=== PATIENT | female | born 1995 | race African-American/Black ===

== ENCOUNTER 2016-07-17 13:49 | Emergency (ER) | payer OTHER ==
[~2016-07-17 13:49] MED LIST: NO HOME MEDS; ORTHO TRICYCLEN LO PO; flagyl PO; ibuprofen PO; lortab PO; no meds; tylenol PO
[2016-07-17 15:57] LABS: MEAN CORPUSCULAR HEMOGLOBIN 25.5 pg (27.0-33.0); MEAN CORPUSCULAR HGB CONC 31.6 g/dl (32.0-36.5); MEAN CORPUSCULAR VOLUME 80.8 fl (80.0-96.0); PLATELET COUNT, AUTOMATED 287 k/mm3 (150-450); RED CELL DISTRIBUTION WIDTH 15.4 % (11.5-14.5); WHITE BLOOD COUNT 8.5 K/mm3 (4.0-10.0)
[2016-07-17 16:14] LABS: ANION GAP 9 MEQ/L (8-16); BLOOD UREA NITROGEN 4 MG/DL (7-18); CARBON DIOXIDE LEVEL 24 MEQ/L (21-32); CHLORIDE LEVEL 111 MEQ/L (98-107); CREATININE FOR GFR 0.67 MG/DL (0.55-1.02); GLUCOSE, FASTING 98 MG/DL (70-105); HCG, SERUM QUANTITATIVE 455 MIU/ML; POTASSIUM SERUM 3.7 MEQ/L (3.5-5.1); SODIUM LEVEL 144 MEQ/L (136-145)
[2016-07-17 16:27] LABS: ANISOCYTOSIS 1+; EOSINOPHILS 3 % (0-5); HYPOCHROMASIA 1+
--- NOTE | 2016-07-17 16:47 | REP ---
Obstetric sonography: First trimester study. History: 7 weeks gestation by dates, vaginal bleeding. Findings: Transabdominal and transvaginal scanning are performed. Uterus is empty. Its dimensions are normal at 7.7 x 3.5 x 4.8 cm. Endometrial echo is 1.1 cm thick. No intra-uterine gestation is seen. A normal right ovary is seen with dimensions of 3.0 x 1.6 x 1.1 cm. Left ovary measures 3.4 x 2.2 x 1.7 cm. There is a 2.2 x 1.3 x 1.9 cm hypoechoic cyst in the left ovary consistent with corpus luteum. There is minimal cul-de-sac fluid. Impression: Nonspecific sonographic findings: Normal sized empty uterus. No intrauterine gestation seen. No adnexal mass or significant cul-de-sac fluid is seen. Clinical and possibly sonographic followup is advised. Signed by Timur Green MD 07/17/2016 04:49 P
--- NOTE | 2016-07-17 17:32 | EDDOCDS ---
Nurse's Notes [facility] Name: Hanna Wilkerson Age: 20 yrs Sex: Female : 1995 Arrival Date: 07/17/2016 Time: 13:49 Bed I7 / 29 Private MD: LAURA Minor Diagnosis: Threatened ;Acute vaginitis-bacterial vaginosis Presentation: 07/17 13:58 Presenting complaint: Patient states: Pt presents with c/o abdominal pain cramping and dls bleeding onset 12 midnight. Pt has had a positive home test no OB care yet. LMP May. Risk factors: The patient reports no loss of conciousness prior to arrival. This patient has not had a hysterectomy. This patient has not begun menopause. Adult Sepsis Screening: The patient does not have new or worsening altered mentation. Patient's respiratory rate is less than 22. Systolic blood pressure is greater than 100. Patient has a qSOFA score of 0- Negative Sepsis Screen. Suicide/Homicide risk assessment- the patient denies having any suicidal and/or homicidal ideations and does not present with any other emotional, behavioral or mental health complaints. Status: The patient is a dependent. Transition of care: patient was not received from another setting of care. 13:58 Acuity: HARITHA Level 3 dls 13:58 Method Of Arrival: Walkin/Carried/Asstd dls Triage Assessment: 14:00 General: Appears in no apparent distress, well developed, well nourished, well groomed, dls Behavior is cooperative. Pain: Pain currently is 3 out of 10 on a pain scale. HIV screening NA for this visit Offered previously. 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 none - PMHx: none; - PSHx: none; - Social history: Smoking status: Patient/guardian denies using No barriers to communication noted, The patient speaks fluent Italian. - Family history: Not pertinent. - : The pt / caregiver states he / she is not on anticoagulants. Home medication list is obtained from the patient. - Exposure Risk Screening:: None identified. Screenin:33 Screening information is obtained from the patient. Fall risk: No risks identified. [place] Assistance ADL's: requires no assistance with activities of daily living. Abuse/DV Screen: The patient / caregiver reports he/she is: not in a situation that causes fear, pain or injury. Nutritional screening: No deficits noted. Advance Directives: Currently, there is no health care proxy. There is no active DNR order. There is no living will. There is no Power of Environmental Educator. home support is adequate. Assessment: 15:33 General: Appears in no apparent distress, skin warm and dry color satisfactory. Moist jmk pink oral mucosa .indicates lower abd cramping. Abd is non distended with bowel sounds present x 4. GI: Abdomen is flat, non- distended Bowel sounds present X 4 quads. Abd is soft X 4 quads Abd is tender to palpation in suprapubic area, right lower quadrant and left lower quadrant. 16:33 General: Appears resting with eyes closed resp easy and regular.. jmk 17:30 General: Appears receptive to discharge. brisk gait.. [facility] Vital Signs: 13:51 BP 134 / 79; Pulse 89; Resp 18 S; Temp 98.0(O); Pulse Ox 100% on R/A; Weight 54.88 kg gr2 (M); Height 4 ft. 9 in. (144.78 cm) (R); Pain 4/10; 17:22 BP 137 / 70; Pulse 70; Resp 18; Temp 97.7; Pulse Ox 99% ; Pain 0/10; jam1 13:51 Body Mass Index 26.18 (54.88 kg, 144.78 cm) gr2 Vitals: 13:51 Log In Time: July 17, 2016 at 13:51. gr2 ED Course: 13:51 Patient visited by Pari Cooper. gr2 13:51 [facility] is Private Physician. gr2 13:51 Patient moved to Waiting gr2 13:54 Patient visited by Pari Cooper. gr2 13:54 Patient moved to Pre RCE gr2 14:00 Triage Initiated dls 14:35 Patient moved to Triage 3 ar3 15:14 Luis Fernando Burnett PA is PHCP. mo1 15:14 Brandan Vuong MD is Attending Physician. mo1 15:20 Patient visited by Luis Fernando Burnett PA. mo1 15:26 Patient moved to I7 / ar3 15:33 The patient / caregiver is instructed regarding the plan of care and ED course. jmk 15:37 Patient visited by Juan Goldberg RN. jmk 15:46 Patient moved to Ultrasound br3 15:47 Urine Culture Sent. jmk 15:47 Type & Screen Sent. jmk 15:47 Hcg, Serum Quantitative Sent. jmk 15:47 BMP Sent. jmk 15:47 CBC with Diff Sent. jmk 15:50 Patient moved to I7 / br3 15:59 Patient moved to Ultrasound br3 16:32 Patient moved to I7 / 29 jmk 16:38 DIFFERENTIAL NO CHARGE Sent. kr3 17:02 US 1st trimester Returned. EDMS 17:02 TRANSVAGINAL US Returned. EDMS 17:02 DUPLEX SCAN LIMITED (DOPPLER) Returned. EDMS 17:21 Eladio Dumas MD is Referral Physician. mo1 Order Results: Lab Order: Wet Prep; SPEC'M 07/17/16 16:02 Test: WET PREP; Value: WET PREP RESULT; Status: F Test: WET PREP; Value: MANY EPITHELIAL CELLS PRESENT; Status: F Test: WET PREP; Value: CLUE CELLS PRESENT; Status: F Test: WET PREP; Value: FEW WBC; Status: F Test: WET PREP; Value: MANY RBC; Status: F Test: WET PREP; Value: MANY SHORT RODS PRESENT; Status: F Lab Order: CBC with Diff; SPEC'M 07/17/16 15:44 Test: WHITE BLOOD COUNT; Value: 8.5; Range: 4.0-10.0; Units: K/mm3; Status: F Test: RED BLOOD COUNT; Value: 4.62; Range: 4.00-5.40; Units: M/mm3; Status: F Test: HEMOGLOBIN; Value: 11.8; Range: 12.0-16.0; Abnormal: Below low normal; Units: g/dl; Status: F Test: HEMATOCRIT; Value: 37.3; Range: 36.0-47.0; Units: %; Status: F Test: MEAN CORPUSCULAR VOLUME; Value: 80.8; Range: 80.0-96.0; Units: fl; Status: F Test: MEAN CORPUSCULAR HEMOGLOBIN; Value: 25.5; Range: 27.0-33.0; Abnormal: Below low normal; Units: pg; Status: F Test: MEAN CORPUSCULAR HGB CONC; Value: 31.6; Range: 32.0-36.5; Abnormal: Below low normal; Units: g/dl; Status: F Test: RED CELL DISTRIBUTION WIDTH; Value: 15.4; Range: 11.5-14.5; Abnormal: Above high normal; Units: %; Status: F Test: PLATELET COUNT, AUTOMATED; Value: 287; Range: 150-450; Units: k/mm3; Status: F Test: NEUTROPHILS; Value: 54; Range: 35-75; Units: %; Status: F Test: LYMPHOCYTES; Value: 31; Range: 16-52; Units: %; Status: F Test: MONOCYTES; Value: 8; Range: 0-8; Units: %; Status: F Test: EOSINOPHILS; Value: 3; Range: 0-5; Units: %; Status: F Test: ATYPICAL LYMPH; Value: 4; Range: 0-5; Units: %; Status: F Test: HYPOCHROMASIA; Value: 1+; Status: F Test: ANISOCYTOSIS; Value: 1+; Status: F Lab Order: [facility]; SPEC'M 07/17/16 15:44 Test: GLUCOSE, FASTING; Value: 98; Range: 70-105; Units: MG/DL; Status: F Test: BLOOD UREA NITROGEN; Value: 4; Range: 7-18; Abnormal: Below low normal; Units: MG/DL; Status: F Test: CREATININE FOR GFR; Value: 0.67; Range: 0.55-1.02; Units: MG/DL; Status: F Test: SODIUM LEVEL; Value: 144; Range: 136-145; Units: MEQ/L; Status: F Test: POTASSIUM SERUM; Value: 3.7; Range: 3.5-5.1; Units: MEQ/L; Status: F Test: CHLORIDE LEVEL; Value: 111; Range: 98-107; Abnormal: Above high normal; Units: MEQ/L; Status: F Test: CARBON DIOXIDE LEVEL; Value: 24; Range: 21-32; Units: MEQ/L; Status: F Test: ANION GAP; Value: 9; Range: 8-16; Units: MEQ/L; Status: F Test: CALCIUM LEVEL; Value: 8.0; Range: 8.5-10.1; Abnormal: Below low normal; Units: MG/DL; Status: F Lab Order: Hcg, Serum Quantitative; [facility] 07/17/16 15:44 Test: HCG, SERUM QUANTITATIVE; Value: 455; Units: MIU/ML; Status: F Test Note: ; GESTATIONAL AGE APPROXIMATE HCG RANGE (MIU/ML) 0.2-1 WEEK 5-50 1-2 WEEKS 50-500 2-3 WEEKS 100-5,000 3-4 WEEKS 500-10,000 4-5 WEEKS 1,000-50,000 5-6 WEEKS 10,000-100,000 6-8 WEEKS 15,000-200,000 2-3 MONTHS 10,000-100,000 NON FEMALES LESS THAN 3.0 Patient samples may contain human heterophilic antibodies that could react with immunoassays to give falsely elevated or depressed results. This assay has been designed to minimize interference from heterophilic antibodies. Elevated hCG levels have also been associated with trophoblastic disease and nontrophoblastic neoplasms. The possibility of having these diseases should be considered before a diagnosis of is made. This test is not intended for use as a surrogate marker for aiding in the diagnosis or monitoring the treatment of cancer patients. [employer] Get[employer] methodology. Lab Order: Type & Screen; [facility] 07/17/16:44 Test: BLOOD TYPE; Value: A POS; Status: F Test: AB SCREEN (INDIRECT YONI)GEL; Value: NEGATIVE; Status: F Lab Order: UA; [facility] 07/17/16 15:44 Test: APPEARANCE, URINE; Value: HAZY; Range: CLEAR; Status: F Test: COLOR, URINE; Value: YELLOW; Range: YELLOW; Status: F Test: PH,URINE; Value: 7.0; Range: 5.0-9.0; Units: UNITS; Status: F Test: SPECIFIC GRAVITY URINE AUTO; Value: 1.018; Range: 1.002-1.035; Status: F Test: PROTEIN, URINE AUTO; Value: NEGATIVE; Range: NEGATIVE; Units: mg/dL; Status: F Test: GLUCOSE, URINE (UA) AUTO; Value: NEGATIVE; Range: NEGATIVE; Units: mg/dL; Status: F Test: KETONE, URINE AUTO; Value: NEGATIVE; Range: NEGATIVE; Units: mg/dL; Status: F Test: UROBILINOGEN, URINE AUTO; Value: 0.2; Range: 0.0-2.0; Units: mg/dL; Status: F Test: BILIRUBIN, URINE AUTO; Value: NEGATIVE; Range: NEGATIVE; Status: F Test: NITRITE, URINE AUTO; Value: NEGATIVE; Range: NEGATIVE; Status: F Test: LEUKOCYTE ESTERASE, URINE AUTO; Value: NEGATIVE; Range: NEGATIVE; Status: F Test: BLOOD, URINE BLOOD; Value: 2+; Range: NEGATIVE; Abnormal: Above high normal; Status: F Test: WBC, URINE AUTO; Value: 1; Range: 0-3; Units: /HPF; Status: F Test: RBC, URINE AUTO; Value: 33; Range: 0-3; Abnormal: Above high normal; Units: /HPF; Status: F Test: BACTERIA, URINE AUTO; Value: NEGATIVE; Range: NEGATIVE; Status: F Test: SQUAMOUS EPITHELIAL CELL UR AU; Value: 0; Range: 0-6; Units: /HPF; Status: F Test: MUCUS, URINE; Value: SMALL; Range: NEGATIVE; Status: F Test: HYALINE CAST, URINE AUTO; Value: 0; Range: 0-1; Units: /LPF; Status: F Test: AMORPHOUS SEDIMENT; Value: SMALL; Range: NEGATIVE; Abnormal: Above high normal; Status: F Lab Order: PLATELET ESTIMATE; SPEC'M 07/17/16 15:44 Test: PLATELET ESTIMATE; Value: NORMAL; Range: NORMAL; Status: F Radiology Order: US 1st trimester Test: US 1st trimester REASON FOR EXAMINATION: 7wks preg, vag bleeding; Obstetric sonography: First trimester study.; ; History: 7 weeks gestation by dates, vaginal bleeding.; ; Findings: Transabdominal and transvaginal scanning are performed. Uterus is; empty. Its dimensions are normal at 7.7 x 3.5 x 4.8 cm. Endometrial echo is 1.1; cm thick. No intra-uterine gestation is seen. A normal right ovary is seen with; dimensions of 3.0 x 1.6 x 1.1 cm. Left ovary measures 3.4 x 2.2 x 1.7 cm. There; is a 2.2 x 1.3 x 1.9 cm hypoechoic cyst in the left ovary consistent with corpus; luteum. There is minimal cul-de-sac fluid.; ; Impression:; ; Nonspecific sonographic findings: Normal sized empty uterus. No intrauterine; gestation seen. No adnexal mass or significant cul-de-sac fluid is seen.; Clinical and possibly sonographic followup is advised.; ; ; Signed by; Timur Green MD 07/17/2016 04:49 P; Radiology Order: TRANSVAGINAL US Test: TRANSVAGINAL US REASON FOR EXAMINATION: EVAL FOR IUP; Obstetric sonography: First trimester study.; ; History: 7 weeks gestation by dates, vaginal bleeding.; ; Findings: Transabdominal and transvaginal scanning are performed. Uterus is; empty. Its dimensions are normal at 7.7 x 3.5 x 4.8 cm. Endometrial echo is 1.1; cm thick. No intra-uterine gestation is seen. A normal right ovary is seen with; dimensions of 3.0 x 1.6 x 1.1 cm. Left ovary measures 3.4 x 2.2 x 1.7 cm. There; is a 2.2 x 1.3 x 1.9 cm hypoechoic cyst in the left ovary consistent with corpus; luteum. There is minimal cul-de-sac fluid.; ; Impression:; ; Nonspecific sonographic findings: Normal sized empty uterus. No intrauterine; gestation seen. No adnexal mass or significant cul-de-sac fluid is seen.; Clinical and possibly sonographic followup is advised.; ; ; Signed by; Timur Green MD 07/17/2016 04:49 P; Radiology Order: DUPLEX SCAN LIMITED (DOPPLER) Test: DUPLEX SCAN LIMITED (DOPPLER) REASON FOR EXAMINATION: RI OF OVARIES; Obstetric sonography: First trimester study.; ; History: 7 weeks gestation by dates, vaginal bleeding.; ; Findings: Transabdominal and transvaginal scanning are performed. Uterus is; empty. Its dimensions are normal at 7.7 x 3.5 x 4.8 cm. Endometrial echo is 1.1; cm thick. No intra-uterine gestation is seen. A normal right ovary is seen with; dimensions of 3.0 x 1.6 x 1.1 cm. Left ovary measures 3.4 x 2.2 x 1.7 cm. There; is a 2.2 x 1.3 x 1.9 cm hypoechoic cyst in the left ovary consistent with corpus; luteum. There is minimal cul-de-sac fluid.; ; Impression:; ; Nonspecific sonographic findings: Normal sized empty uterus. No intrauterine; gestation seen. No adnexal mass or significant cul-de-sac fluid is seen.; Clinical and possibly sonographic followup is advised.; ; ; Signed by; Timur Green MD 07/17/2016 04:49 P; Outcome: 17:21 Discharge ordered by Provider. mo1 17:30 Discharge Assessment: Patient awake, alert and oriented x 3. No cognitive and/or jmk functional deficits noted. Patient verbalized understanding of disposition instructions. patient administered narcotics - no. The following High Risk Discharge criteria are identified: None. Condition: good. Discharge instructions given to patient, Instructed on discharge instructions, follow up and referral plans. medication usage, Demonstrated understanding of instructions, medications, Pt was receptive of discharge instructions/ teaching. Prescriptions given X 1. Ultrasound Study completed. Property :Personal belongings accompany Pt. 17:31 Patient left the ED. [email or web address] Signatures: Dispatcher [employer] EDMS Juan Goldberg,RN Jessica Ruiz RN RN Flower Rogers, CLINICAL RADIOLOGIST CLINICAL RADIOLOGIST jam1 Enma GilRN RN kr3 Zulma Cooper br3 Carissa Zendejas, CLINICAL RADIOLOGIST CLINICAL RADIOLOGIST ar3 Pari Cooper gr2 Luis Fernando Burnett PA PA mo1 MTDD
--- NOTE | 2016-07-17 17:32 | EDDOCDS ---
Physician Documentation [facility] Name: Hanna Wilkerson Age: 20 yrs Sex: Female : 1995 Arrival Date: 07/17/2016 Time: 13:49 Bed I7 / 29 Private MD: Iván [facility] [place] Disposition: 07/17/16 17:21 Discharged to Home/Self Care. Impression: Threatened , Acute vaginitis - bacterial vaginosis. - Condition is Stable. - Discharge Instructions: Incomplete Miscarriage, Threatened Miscarriage. - Prescriptions for Flagyl 500 mg Oral Tablet - take 1 tablet by ORAL route every 12 hours for 7 days; 14 tablet. - Medication Reconciliation, Local Pharmacy Hours form. - Follow up: Eladio Dumas MD; When: Call to arrange an appointment; Reason: Recheck today's complaints, Continuance of care. - Problem is new. - Symptoms are unchanged. - Notes: please call PUTTY MAKER tomorrow for follow up or return to ER sooner if any concerns arise. todays beta HCG was 455 Historical: - Allergies: no known allergies; - Home Meds: 1. none - PMHx: none; - PSHx: none; - Social history: Smoking status: Patient/guardian denies using No barriers to communication noted, The patient speaks fluent Italian. - Family history: Not pertinent. - : The pt / caregiver states he / she is not on anticoagulants. Home medication list is obtained from the patient. - Exposure Risk Screening:: None identified. PUTTY MAKER: 07/17 14:00 2, Full Term 0, Premature 0, 1, Living 0, LMP 05/25/2016 dls Vital Signs: 13:51 BP 134 / 79; Pulse 89; Resp 18 S; Temp 98.0(O); Pulse Ox 100% on R/A; Weight 54.88 kg / gr2 120.99 lbs (M); Height 4 ft. 9 in. (144.78 cm) (R); Pain 4/10; 17:22 BP 137 / 70; Pulse 70; Resp 18; Temp 97.7; Pulse Ox 99% ; Pain 0/10; jam1 13:51 Body Mass Index 26.18 (54.88 kg, 144.78 cm) gr2 MDM: 15:28 Set up pelvic ordered. mo1 15:29 GC & Chlamydia Amplification Ordered. EDMS 15:29 Wet Prep Ordered. EDMS 15:29 CBC with Diff Ordered. EDMS 15:29 BMP Ordered. EDMS 15:29 Hcg, Serum Quantitative Ordered. EDMS 15:29 Type & Screen Ordered. EDMS 15:29 UA Ordered. EDMS 15:29 Urine Culture Ordered. EDMS 15:30 US 1st trimester Ordered. EDMS 15:59 DIFFERENTIAL NO CHARGE Ordered. EDMS 15:59 PLATELET ESTIMATE Ordered. EDMS 16:20 TRANSVAGINAL US Ordered. EDMS 16:21 DUPLEX SCAN LIMITED (DOPPLER) Ordered. EDMS 16:28 UA Reviewed. mo1 16:29 Wet Prep Reviewed. mo1 16:29 BMP Reviewed. mo1 16:29 CBC with Diff Reviewed. mo1 16:30 Type & Screen Reviewed. mo1 16:30 Hcg, Serum Quantitative Reviewed. mo1 16:42 Type & Screen Reviewed. mo1 16:43 PLATELET ESTIMATE Reviewed. mo1 Signatures: Dispatcher [employer] Juan Bills RN RN jmk Scott, Debra, RN RN dls O'Hagan, Michael, PA PA mo1 TRICIA
--- NOTE | 2016-07-19 18:32 | EDDOCDS ---
Nurse's Notes [facility] Name: Hanna Wilkerson Age: 20 yrs Sex: Female : 1995 Arrival Date: 07/17/2016 Time: 13:49 Bed I7 / 29 Private MD: LAURA Minor Diagnosis: Threatened ;Acute vaginitis-bacterial vaginosis Presentation: 07/17 13:58 Presenting complaint: Patient states: Pt presents with c/o abdominal pain cramping and dls bleeding onset 12 midnight. Pt has had a positive home test no OB care yet. LMP May. Risk factors: The patient reports no loss of conciousness prior to arrival. This patient has not had a hysterectomy. This patient has not begun menopause. Adult Sepsis Screening: The patient does not have new or worsening altered mentation. Patient's respiratory rate is less than 22. Systolic blood pressure is greater than 100. Patient has a qSOFA score of 0- Negative Sepsis Screen. Suicide/Homicide risk assessment- the patient denies having any suicidal and/or homicidal ideations and does not present with any other emotional, behavioral or mental health complaints. Status: The patient is a dependent. Transition of care: patient was not received from another setting of care. 13:58 Acuity: HARITHA Level 3 dls 13:58 Method Of Arrival: Walkin/Carried/Asstd dls Triage Assessment: 14:00 General: Appears in no apparent distress, well developed, well nourished, well groomed, dls Behavior is cooperative. Pain: Pain currently is 3 out of 10 on a pain scale. HIV screening NA for this visit Offered previously. INFECTION CONTROL COORDINATOR: 14:00 2, Full Term 0, Premature 0, 1, Living 0, LMP 05/25/2016 dls Historical: - Allergies: no known allergies; - Home Meds: 1. none - PMHx: none; - PSHx: none; - Social history: Smoking status: Patient/guardian denies using No barriers to communication noted, The patient speaks fluent Yoruba. - Family history: Not pertinent. - : The pt / caregiver states he / she is not on anticoagulants. Home medication list is obtained from the patient. - Exposure Risk Screening:: None identified. Screenin:33 Screening information is obtained from the patient. Fall risk: No risks identified. [place] Assistance ADL's: requires no assistance with activities of daily living. Abuse/DV Screen: The patient / caregiver reports he/she is: not in a situation that causes fear, pain or injury. Nutritional screening: No deficits noted. Advance Directives: Currently, there is no health care proxy. There is no active DNR order. There is no living will. There is no Power of Manufacturing Support Engineer. home support is adequate. Assessment: 15:33 General: Appears in no apparent distress, skin warm and dry color satisfactory. Moist jmk pink oral mucosa .indicates lower abd cramping. Abd is non distended with bowel sounds present x 4. GI: Abdomen is flat, non- distended Bowel sounds present X 4 quads. Abd is soft X 4 quads Abd is tender to palpation in suprapubic area, right lower quadrant and left lower quadrant. 16:33 General: Appears resting with eyes closed resp easy and regular.. jmk 17:30 General: Appears receptive to discharge. brisk gait.. [facility] Vital Signs: 13:51 BP 134 / 79; Pulse 89; Resp 18 S; Temp 98.0(O); Pulse Ox 100% on R/A; Weight 54.88 kg gr2 (M); Height 4 ft. 9 in. (144.78 cm) (R); Pain 4/10; 17:22 BP 137 / 70; Pulse 70; Resp 18; Temp 97.7; Pulse Ox 99% ; Pain 0/10; jam1 13:51 Body Mass Index 26.18 (54.88 kg, 144.78 cm) gr2 Vitals: 13:51 Log In Time: July 17, 2016 at 13:51. gr2 ED Course: 13:51 Patient visited by Pari Cooper. gr2 13:51 Iván [facility] [place] Private Physician. gr2 13:51 Patient moved to Waiting gr2 13:54 Patient visited by Pari Cooper. gr2 13:54 Patient moved to Pre RCE gr2 14:00 Triage Initiated dls 14:35 Patient moved to Triage 3 ar3 15:14 Luis Fernando Burnett PA is PHCP. mo1 15:14 Brandan Vuong MD is Attending Physician. mo1 15:20 Patient visited by Luis Fernando Burnett PA. mo1 15:26 Patient moved to I7 / ar3 15:33 The patient / caregiver is instructed regarding the plan of care and ED course. jmk 15:37 Patient visited by Juan Goldberg RN. jmk 15:46 Patient moved to Ultrasound br3 15:47 Urine Culture Sent. jmk 15:47 Type & Screen Sent. jmk 15:47 Hcg, Serum Quantitative Sent. jmk 15:47 BMP Sent. jmk 15:47 CBC with Diff Sent. jmk 15:50 Patient moved to I7 / 29 br3 15:59 Patient moved to Ultrasound br3 16:32 Patient moved to I7 / 29 jmk 16:38 DIFFERENTIAL NO CHARGE Sent. kr3 17:02 US 1st trimester Returned. EDMS 17:02 TRANSVAGINAL US Returned. EDMS 17:02 DUPLEX SCAN LIMITED (DOPPLER) Returned. EDMS 17:21 Eladio Dumas MD is Referral Physician. mo1 17:32 [facility] [place] was scanned into Jet and attached to record. gjb 19:39 Patient name changed from Lanasia\S\Sandra\S\Rhea\S\ to Lanasia\S\ \S\Rhea. EDMS 21:37 T-Sheet-- Draft Copy was scanned into Jet and attached to record. klr 07/18 09:33 Radiology Report was scanned into Jet and attached to record. gb Order Results: Lab Order: GC & Chlamydia Amplification; SPEC'M 07/17/16 16:02 Test: CHLAMYDIA DNA AMPLIFICATION; Value: NEGATIVE; Range: NEGATIVE; Status: F Test: GC DNA AMPLIFICATION; Value: NEGATIVE; Range: NEGATIVE; Status: F Lab Order: Wet Prep; SPEC'M 07/17/16 16:02 Test: WET PREP; Value: WET PREP RESULT; Status: F Test: WET PREP; Value: MANY EPITHELIAL CELLS PRESENT; Status: F Test: WET PREP; Value: CLUE CELLS PRESENT; Status: F Test: WET PREP; Value: FEW WBC; Status: F Test: WET PREP; Value: MANY RBC; Status: F Test: WET PREP; Value: MANY SHORT RODS PRESENT; Status: F Lab Order: CBC with Diff; SPEC'M 07/17/16 15:44 Test: WHITE BLOOD COUNT; Value: 8.5; Range: 4.0-10.0; Units: K/mm3; Status: F Test: RED BLOOD COUNT; Value: 4.62; Range: 4.00-5.40; Units: M/mm3; Status: F Test: HEMOGLOBIN; Value: 11.8; Range: 12.0-16.0; Abnormal: Below low normal; Units: g/dl; Status: F Test: HEMATOCRIT; Value: 37.3; Range: 36.0-47.0; Units: %; Status: F Test: MEAN CORPUSCULAR VOLUME; Value: 80.8; Range: 80.0-96.0; Units: fl; Status: F Test: MEAN CORPUSCULAR HEMOGLOBIN; Value: 25.5; Range: 27.0-33.0; Abnormal: Below low normal; Units: pg; Status: F Test: MEAN CORPUSCULAR HGB CONC; Value: 31.6; Range: 32.0-36.5; Abnormal: Below low normal; Units: g/dl; Status: F Test: RED CELL DISTRIBUTION WIDTH; Value: 15.4; Range: 11.5-14.5; Abnormal: Above high normal; Units: %; Status: F Test: PLATELET COUNT, AUTOMATED; Value: 287; Range: 150-450; Units: k/mm3; Status: F Test: NEUTROPHILS; Value: 54; Range: 35-75; Units: %; Status: F Test: LYMPHOCYTES; Value: 31; Range: 16-52; Units: %; Status: F Test: MONOCYTES; Value: 8; Range: 0-8; Units: %; Status: F Test: EOSINOPHILS; Value: 3; Range: 0-5; Units: %; Status: F Test: ATYPICAL LYMPH; Value: 4; Range: 0-5; Units: %; Status: F Test: HYPOCHROMASIA; Value: 1+; Status: F Test: ANISOCYTOSIS; Value: 1+; Status: F Lab Order: [facility]; SPEC'M 07/17/16 15:44 Test: GLUCOSE, FASTING; Value: 98; Range: 70-105; Units: MG/DL; Status: F Test: BLOOD UREA NITROGEN; Value: 4; Range: 7-18; Abnormal: Below low normal; Units: MG/DL; Status: F Test: CREATININE FOR GFR; Value: 0.67; Range: 0.55-1.02; Units: MG/DL; Status: F Test: SODIUM LEVEL; Value: 144; Range: 136-145; Units: MEQ/L; Status: F Test: POTASSIUM SERUM; Value: 3.7; Range: 3.5-5.1; Units: MEQ/L; Status: F Test: CHLORIDE LEVEL; Value: 111; Range: 98-107; Abnormal: Above high normal; Units: MEQ/L; Status: F Test: CARBON DIOXIDE LEVEL; Value: 24; Range: 21-32; Units: MEQ/L; Status: F Test: ANION GAP; Value: 9; Range: 8-16; Units: MEQ/L; Status: F Test: CALCIUM LEVEL; Value: 8.0; Range: 8.5-10.1; Abnormal: Below low normal; Units: MG/DL; Status: F Lab Order: Hcg, Serum Quantitative; SPEC'M 07/17/16 15:44 Test: HCG, SERUM QUANTITATIVE; Value: 455; Units: MIU/ML; Status: F Test Note: ; GESTATIONAL AGE APPROXIMATE HCG RANGE (MIU/ML) 0.2-1 WEEK 5-50 1-2 WEEKS 50-500 2-3 WEEKS 100-5,000 3-4 WEEKS 500-10,000 4-5 WEEKS 1,000-50,000 5-6 WEEKS 10,000-100,000 6-8 WEEKS 15,000-200,000 2-3 MONTHS 10,000-100,000 NON FEMALES LESS THAN 3.0 Patient samples may contain human heterophilic antibodies that could react with immunoassays to give falsely elevated or depressed results. This assay has been designed to minimize interference from heterophilic antibodies. Elevated hCG levels have also been associated with trophoblastic disease and nontrophoblastic neoplasms. The possibility of having these diseases should be considered before a diagnosis of is made. This test is not intended for use as a surrogate marker for aiding in the diagnosis or monitoring the treatment of cancer patients. [employer] methodology. Lab Order: Type & Screen; SPEC'M 07/17/16 15:44 Test: BLOOD TYPE; Value: A POS; Status: F Test: AB SCREEN (INDIRECT YONI)GEL; Value: NEGATIVE; Status: F Lab Order: UA; SPEC'M 07/17/16 15:44 Test: APPEARANCE, URINE; Value: HAZY; Range: CLEAR; Status: F Test: COLOR, URINE; Value: YELLOW; Range: YELLOW; Status: F Test: PH,URINE; Value: 7.0; Range: 5.0-9.0; Units: UNITS; Status: F Test: SPECIFIC GRAVITY URINE AUTO; Value: 1.018; Range: 1.002-1.035; Status: F Test: PROTEIN, URINE AUTO; Value: NEGATIVE; Range: NEGATIVE; Units: mg/dL; Status: F Test: GLUCOSE, URINE (UA) AUTO; Value: NEGATIVE; Range: NEGATIVE; Units: mg/dL; Status: F Test: KETONE, URINE AUTO; Value: NEGATIVE; Range: NEGATIVE; Units: mg/dL; Status: F Test: UROBILINOGEN, URINE AUTO; Value: 0.2; Range: 0.0-2.0; Units: mg/dL; Status: F Test: BILIRUBIN, URINE AUTO; Value: NEGATIVE; Range: NEGATIVE; Status: F Test: NITRITE, URINE AUTO; Value: NEGATIVE; Range: NEGATIVE; Status: F Test: LEUKOCYTE ESTERASE, URINE AUTO; Value: NEGATIVE; Range: NEGATIVE; Status: F Test: BLOOD, URINE BLOOD; Value: 2+; Range: NEGATIVE; Abnormal: Above high normal; Status: F Test: WBC, URINE AUTO; Value: 1; Range: 0-3; Units: /HPF; Status: F Test: RBC, URINE AUTO; Value: 33; Range: 0-3; Abnormal: Above high normal; Units: /HPF; Status: F Test: BACTERIA, URINE AUTO; Value: NEGATIVE; Range: NEGATIVE; Status: F Test: SQUAMOUS EPITHELIAL CELL UR AU; Value: 0; Range: 0-6; Units: /HPF; Status: F Test: MUCUS, URINE; Value: SMALL; Range: NEGATIVE; Status: F Test: HYALINE CAST, URINE AUTO; Value: 0; Range: 0-1; Units: /LPF; Status: F Test: AMORPHOUS SEDIMENT; Value: SMALL; Range: NEGATIVE; Abnormal: Above high normal; Status: F Lab Order: Urine Culture; SPEC'M 07/17/16 15:44 Test: URINE CULTURE; Value: <EXTERNAL COMMENT eCWMed> FULL REPORT IN LAB NOTES (eCW and Medent).; Status: F Test: URINE CULTURE; Value: URINE CULTURE RESULT NO GROWTH; Status: F Lab Order: PLATELET ESTIMATE; SPEC'M 07/17/16 15:44 Test: PLATELET ESTIMATE; Value: NORMAL; Range: NORMAL; Status: F Radiology Order: US 1st trimester Test: US 1st trimester REASON FOR EXAMINATION: 7wks preg, vag bleeding; Obstetric sonography: First trimester study.; ; History: 7 weeks gestation by dates, vaginal bleeding.; ; Findings: Transabdominal and transvaginal scanning are performed. Uterus is; empty. Its dimensions are normal at 7.7 x 3.5 x 4.8 cm. Endometrial echo is 1.1; cm thick. No intra-uterine gestation is seen. A normal right ovary is seen with; dimensions of 3.0 x 1.6 x 1.1 cm. Left ovary measures 3.4 x 2.2 x 1.7 cm. There; is a 2.2 x 1.3 x 1.9 cm hypoechoic cyst in the left ovary consistent with corpus; luteum. There is minimal cul-de-sac fluid.; ; Impression:; ; Nonspecific sonographic findings: Normal sized empty uterus. No intrauterine; gestation seen. No adnexal mass or significant cul-de-sac fluid is seen.; Clinical and possibly sonographic followup is advised.; ; ; Signed by; Timur Green MD 07/17/2016 04:49 P; Radiology Order: TRANSVAGINAL US Test: TRANSVAGINAL US REASON FOR EXAMINATION: EVAL FOR IUP; Obstetric sonography: First trimester study.; ; History: 7 weeks gestation by dates, vaginal bleeding.; ; Findings: Transabdominal and transvaginal scanning are performed. Uterus is; empty. Its dimensions are normal at 7.7 x 3.5 x 4.8 cm. Endometrial echo is 1.1; cm thick. No intra-uterine gestation is seen. A normal right ovary is seen with; dimensions of 3.0 x 1.6 x 1.1 cm. Left ovary measures 3.4 x 2.2 x 1.7 cm. There; is a 2.2 x 1.3 x 1.9 cm hypoechoic cyst in the left ovary consistent with corpus; luteum. There is minimal cul-de-sac fluid.; ; Impression:; ; Nonspecific sonographic findings: Normal sized empty uterus. No intrauterine; gestation seen. No adnexal mass or significant cul-de-sac fluid is seen.; Clinical and possibly sonographic followup is advised.; ; ; Signed by; Timur Green MD 07/17/2016 04:49 P; Radiology Order: DUPLEX SCAN LIMITED (DOPPLER) Test: DUPLEX SCAN LIMITED (DOPPLER) REASON FOR EXAMINATION: RI OF OVARIES; Obstetric sonography: First trimester study.; ; History: 7 weeks gestation by dates, vaginal bleeding.; ; Findings: Transabdominal and transvaginal scanning are performed. Uterus is; empty. Its dimensions are normal at 7.7 x 3.5 x 4.8 cm. Endometrial echo is 1.1; cm thick. No intra-uterine gestation is seen. A normal right ovary is seen with; dimensions of 3.0 x 1.6 x 1.1 cm. Left ovary measures 3.4 x 2.2 x 1.7 cm. There; is a 2.2 x 1.3 x 1.9 cm hypoechoic cyst in the left ovary consistent with corpus; luteum. There is minimal cul-de-sac fluid.; ; Impression:; ; Nonspecific sonographic findings: Normal sized empty uterus. No intrauterine; gestation seen. No adnexal mass or significant cul-de-sac fluid is seen.; Clinical and possibly sonographic followup is advised.; ; ; Signed by; Timur Green MD 07/17/2016 04:49 P; Outcome: 07/17 17:21 Discharge ordered by Provider. mo1 17:30 Discharge Assessment: Patient awake, alert and oriented x 3. No cognitive and/or [place] functional deficits noted. Patient verbalized understanding of disposition instructions. patient administered narcotics - no. The following High Risk Discharge criteria are identified: None. Condition: good. Discharge instructions given to patient, Instructed on discharge instructions, follow up and referral plans. medication usage, Demonstrated understanding of instructions, medications, Pt was receptive of discharge instructions/ teaching. Prescriptions given X 1. Ultrasound Study completed. Property :Personal belongings accompany Pt. 17:31 Patient left the ED. yuniel Signatures: Dispatcher MedHost EDMS Juan Goldberg RN RN jmk Scott, Debra, RN RN dls Murphy, Jane, BRAD UTILITY PORTER jam1 Skye Nation, Mal Reg Enma Merida RN RN kr3 Zulma Cooper br3 Carissa Zendejas, UTILITY PORTER UTILITY PORTER ar3 Pari Cooper gr2 Luis Fernando Burnett PA PA mo1 Tara Cheney Kathie klr Chart Complete MTDD
--- NOTE | 2016-07-19 18:32 | EDDOCDS ---
Physician Documentation [facility] Name: Hanna Wilkerson Age: 20 yrs Sex: Female : 1995 Arrival Date: 07/17/2016 Time: 13:49 Bed I7 / 29 Private MD: Iván [facility] [place] Disposition: 07/17/16 17:21 Discharged to Home/Self Care. Impression: Threatened , Acute vaginitis - bacterial vaginosis. - Condition is Stable. - Discharge Instructions: Incomplete Miscarriage, Threatened Miscarriage. - Prescriptions for Flagyl 500 mg Oral Tablet - take 1 tablet by ORAL route every 12 hours for 7 days; 14 tablet. - Medication Reconciliation, Local Pharmacy Hours form. - Follow up: Eladio Dumas MD; When: Call to arrange an appointment; Reason: Recheck today's complaints, Continuance of care. - Problem is new. - Symptoms are unchanged. - Notes: please call COIN MACHINE SERVICER REPAIRER tomorrow for follow up or return to ER sooner if any concerns arise. todays beta HCG was 455 Historical: - Allergies: no known allergies; - Home Meds: 1. none - PMHx: none; - PSHx: none; - Social history: Smoking status: Patient/guardian denies using No barriers to communication noted, The patient speaks fluent Thai. - Family history: Not pertinent. - : The pt / caregiver states he / she is not on anticoagulants. Home medication list is obtained from the patient. - Exposure Risk Screening:: None identified. COIN MACHINE SERVICER REPAIRER: 07/17 14:00 2, Full Term 0, Premature 0, 1, Living 0, LMP 05/25/2016 dls Vital Signs: 13:51 BP 134 / 79; Pulse 89; Resp 18 S; Temp 98.0(O); Pulse Ox 100% on R/A; Weight 54.88 kg / gr2 120.99 lbs (M); Height 4 ft. 9 in. (144.78 cm) (R); Pain 4/10; 17:22 BP 137 / 70; Pulse 70; Resp 18; Temp 97.7; Pulse Ox 99% ; Pain 0/10; jam1 13:51 Body Mass Index 26.18 (54.88 kg, 144.78 cm) gr2 MDM: 15:28 Set up pelvic ordered. mo1 15:29 GC & Chlamydia Amplification Ordered. EDMS 15:29 Wet Prep Ordered. EDMS 15:29 CBC with Diff Ordered. EDMS 15:29 BMP Ordered. EDMS 15:29 Hcg, Serum Quantitative Ordered. EDMS 15:29 Type & Screen Ordered. EDMS 15:29 UA Ordered. EDMS 15:29 Urine Culture Ordered. EDMS 15:30 US 1st trimester Ordered. EDMS 15:59 DIFFERENTIAL NO CHARGE Ordered. EDMS 15:59 PLATELET ESTIMATE Ordered. EDMS 16:20 TRANSVAGINAL US Ordered. EDMS 16:21 DUPLEX SCAN LIMITED (DOPPLER) Ordered. EDMS 16:28 UA Reviewed. mo1 16:29 Wet Prep Reviewed. mo1 16:29 BMP Reviewed. mo1 16:29 CBC with Diff Reviewed. mo1 16:30 Type & Screen Reviewed. mo1 16:30 Hcg, Serum Quantitative Reviewed. mo1 16:42 Type & Screen Reviewed. mo1 16:43 PLATELET ESTIMATE Reviewed. mo1 17:32 [facility] Payment Agreement was scanned into e-channel and attached to record. [facility] 17:32 Financial registration complete. b 21:37 T-Sheet-- Draft Copy was scanned into e-channel and attached to record. klr 07/18 09:33 Radiology Report was scanned into e-channel and attached to record. gb Signatures: Dispatcher MedHost Juan Bills,Jessica Ruiz RN, RN RN dls Barnhardt, Gloria, Reg Reg gb Luis Fernando Burnett PA PA mo1 Tara Cheney [facility] Prisca Yu The chart was reviewed and I authenticate all verbal orders and agree with the evaluation and treatment provided.Attachments: 07/17 17:32 [facility] Payment Agreement [facility] 21:37 T-Sheet-- Draft Copy klr Chart Complete MTDD
--- NOTE | 2016-07-19 18:32 | EDDOCDS ---
Physician Documentation [facility] Name: Hanna Wilkerson Age: 20 yrs Sex: Female : 1995 Arrival Date: 07/17/2016 Time: 13:49 Bed I7 / 29 Private MD: Iván [facility] Disposition: 07/17/16 17:21 Discharged to Home/Self Care. Impression: Threatened , Acute vaginitis - bacterial vaginosis. - Condition is Stable. - Discharge Instructions: Incomplete Miscarriage, Threatened Miscarriage. - Prescriptions for Flagyl 500 mg Oral Tablet - take 1 tablet by ORAL route every 12 hours for 7 days; 14 tablet. - Medication Reconciliation, Local Pharmacy Hours form. - Follow up: Eladio Dumas MD; When: Call to arrange an appointment; Reason: Recheck today's complaints, Continuance of care. - Problem is new. - Symptoms are unchanged. - Notes: please call PLATE CORRECTOR tomorrow for follow up or return to ER sooner if any concerns arise. todays beta HCG was 455 Historical: - Allergies: no known allergies; - Home Meds: 1. none - PMHx: none; - PSHx: none; - Social history: Smoking status: Patient/guardian denies using No barriers to communication noted, The patient speaks fluent Chinese. - Family history: Not pertinent. - : The pt / caregiver states he / she is not on anticoagulants. Home medication list is obtained from the patient. - Exposure Risk Screening:: None identified. PLATE CORRECTOR: 07/17 14:00 2, Full Term 0, Premature 0, 1, Living 0, LMP 05/25/2016 dls Vital Signs: 13:51 BP 134 / 79; Pulse 89; Resp 18 S; Temp 98.0(O); Pulse Ox 100% on R/A; Weight 54.88 kg / gr2 120.99 lbs (M); Height 4 ft. 9 in. (144.78 cm) (R); Pain 4/10; 17:22 BP 137 / 70; Pulse 70; Resp 18; Temp 97.7; Pulse Ox 99% ; Pain 0/10; jam1 13:51 Body Mass Index 26.18 (54.88 kg, 144.78 cm) gr2 MDM: 15:28 Set up pelvic ordered. mo1 15:29 GC & Chlamydia Amplification Ordered. EDMS 15:29 Wet Prep Ordered. EDMS 15:29 CBC with Diff Ordered. EDMS 15:29 BMP Ordered. EDMS 15:29 Hcg, Serum Quantitative Ordered. EDMS 15:29 Type & Screen Ordered. EDMS 15:29 UA Ordered. EDMS 15:29 Urine Culture Ordered. EDMS 15:30 US 1st trimester Ordered. EDMS 15:59 DIFFERENTIAL NO CHARGE Ordered. EDMS 15:59 PLATELET ESTIMATE Ordered. EDMS 16:20 TRANSVAGINAL US Ordered. EDMS 16:21 DUPLEX SCAN LIMITED (DOPPLER) Ordered. EDMS 16:28 UA Reviewed. mo1 16:29 Wet Prep Reviewed. mo1 16:29 BMP Reviewed. mo1 16:29 CBC with Diff Reviewed. mo1 16:30 Type & Screen Reviewed. mo1 16:30 Hcg, Serum Quantitative Reviewed. mo1 16:42 Type & Screen Reviewed. mo1 16:43 PLATELET ESTIMATE Reviewed. mo1 17:32 [facility] Payment Agreement was scanned into Parking Panda and attached to record. [facility] 17:32 Financial registration complete. b 21:37 T-Sheet-- Draft Copy was scanned into Parking Panda and attached to record. klr 07/18 09:33 Radiology Report was scanned into Parking Panda and attached to record. gb Signatures: Dispatcher MedHost Juan Bills,Jessica Ruiz RN, RN RN dls Barnhardt, Gloria, Reg Reg gb Luis Fernando Burnett PA PA mo1 Tara Cheney [facility] Prisca Yu The chart was reviewed and I authenticate all verbal orders and agree with the evaluation and treatment provided.Attachments: 07/17 17:32 [facility] Payment Agreement [facility] 21:37 T-Sheet-- Draft Copy klr Chart Complete MTDD
== END 2016-07-17 17:31 | disposition home or self-care (01) ==
LOC: M ED 13:49
DX: O03.4 Incomplete spontaneous abortion without complication (principal); O23.591 Infection of other part of genital tract in pregnancy, first trimester; N76.0 Acute vaginitis; Z3A.01 Less than 8 weeks gestation of pregnancy

== ENCOUNTER → 2016-07-19 | Outpatient (CLI) | payer OTHER | END | disposition home or self-care (01) | LOC: M SMT 15:06 | PROVIDERS: ATTEND Advanced Practice Midwife | DX: O26.851 Spotting complicating pregnancy, first trimester (principal); Z36 Encounter for antenatal screening of mother; Z3A.00 Weeks of gestation of pregnancy not specified ==

== ENCOUNTER → 2016-08-14 | Outpatient (REF) | payer OTHER | LOC: M SFHCLERA 18:17 | PROVIDERS: ATTEND Physician Assistant | DX: R10.9 Unspecified abdominal pain (principal); N89.8 Other specified noninflammatory disorders of vagina ==

== ENCOUNTER → 2016-11-10 | Outpatient (REF) | payer OTHER | LOC: M SFHCLERA 12:51 | PROVIDERS: ATTEND Physician Assistant | DX: N89.8 Other specified noninflammatory disorders of vagina (principal); R35.0 Frequency of micturition ==

== ENCOUNTER → 2016-12-22 | Outpatient (REF) | payer OTHER | LOC: M SFHCLERA 16:33 | PROVIDERS: ATTEND Family Medicine | DX: N76.0 Acute vaginitis (principal) ==

== ENCOUNTER → 2017-05-01 | Outpatient (REF) | payer OTHER | LOC: M SFHCLUC 11:55 | PROVIDERS: ATTEND Nurse Practitioner Family | DX: R30.0 Dysuria (principal) ==

== ENCOUNTER 2017-05-07 14:01 | Emergency (ER) | payer OTHER ==
[~2017-05-07] VITALS: Ht 144.8 cm; Wt 56.0 kg
[2017-05-07 14:01] VITALS: BP 122/85
[2017-05-08] MEDS ORDERED: ZOFR4TAB3 PO (13:01)
[2017-05-08] MEDS ORDERED: FLAG500T PO (13:01)
== END 2017-05-07 16:16 | disposition left against medical advice (07) ==
LOC: M ED 14:01
DX: Z53.21 Procedure and treatment not carried out due to patient leaving prior to being seen by health care provider (principal)

== ENCOUNTER 2017-05-08 10:21 | Emergency (ER) | payer OTHER ==
[~2017-05-08] VITALS: Ht 144.8 cm; Wt 57.3 kg
[2017-05-08 12:05] LABS: CONTROL LINE UCG INT CTR LINE PRESENT
[2017-05-08] MEDS ORDERED: ZOFR4TAB3 PO (13:01)
[2017-05-08] MEDS ORDERED: FLAG500T PO (13:01)
[2017-05-08 13:14] VITALS: BP 129/88
== END 2017-05-08 13:23 | disposition home or self-care (01) ==
LOC: M ED 10:21
DX: N76.0 Acute vaginitis (principal); Z87.42 Personal history of other diseases of the female genital tract

== ENCOUNTER 2017-05-29 12:52 | Emergency (ER) | payer OTHER ==
[~2017-05-29] VITALS: Ht 144.8 cm; Wt 57.3 kg
[~2017-05-29 12:52] MED LIST changes: +FLAG500T PO; +ZOFR4TAB3 PO
--- NOTE | 2017-05-29 15:45 | REP ---
Emergency first trimester OB sonogram: History: Pelvic pain. LMP April 18, 2017. Findings: Transabdominal scanning is performed. A single living intrauterine gestation is seen in a free-floating lie. The embryonic pole measures 5 mm in crown-rump length corresponding with a gestational age estimate of 6 weeks 1 day. heart rate is recorded at 141 beats per minute. No subchorionic hemorrhage is identified. There is a 2.7 cm corpus luteum cyst in the maternal right ovary. No other extrauterine abnormality. Impression: Viable single intrauterine gestation at 6 weeks 1 day by crown-rump length. RAI by sonography January 21, 2018. Signed by Timur Green MD 05/29/2017 04:04 P
[2017-05-29 15:54] VITALS: BP 133/82
[2017-05-29] MEDS ORDERED: CLEO300C2 PO (15:56)
== END 2017-05-29 16:08 | disposition home or self-care (01) ==
LOC: M ED 12:52
DX: O23.31 Infections of other parts of urinary tract in pregnancy, first trimester (principal); Z3A.01 Less than 8 weeks gestation of pregnancy; Z87.42 Personal history of other diseases of the female genital tract; Z87.19 Personal history of other diseases of the digestive system

== ENCOUNTER 2017-06-01 20:35 | Emergency (ER) | payer OTHER ==
[~2017-06-01] VITALS: Ht 144.8 cm; Wt 57.7 kg
[~2017-06-01 20:35] MED LIST changes: +CLEO300C2 PO
[2017-06-01] MEDS ORDERED: NS 1,000 ML IV ONE (21:15)
[2017-06-01] MEDS ORDERED: METOCLOPRAMIDE INJ 10MG/2ML VIAL (J2765) IV ONE (21:15)
[2017-06-01 21:28] LABS: BASO % 0.3 % (0.0-1.0); EOS # 0.1 10^3/uL (0.0-0.50); EOS % 0.4 % (0.0-3.0); IMMATURE GRANULOCYTE % 0.3 % (0-0); LYMPH # 2.4 10^3/uL (1.5-6.5); LYMPH % 18.1 % (24.0-44.0); MEAN CORPUSCULAR HEMOGLOBIN 26.3 pg (27.0-33.0); MEAN CORPUSCULAR HGB CONC 32.4 g/dl (32.0-36.5); MEAN CORPUSCULAR VOLUME 81.3 fl (80.0-96.0); MONO # 1.1 10^3/uL (0.0-0.8); MONO % 8.2 % (0.0-5.0); NEUTROPHILS # 9.6 10^3/uL (1.8-7.7); NEUTROPHILS % 72.7 % (36.0-66.0); PLATELET COUNT, AUTOMATED 350 10^3/uL (150-450); RED CELL DISTRIBUTION WIDTH 13.5 % (11.5-14.5); WHITE BLOOD COUNT 13.1 10^3/uL (4.0-10.0)
--- NOTE | 2017-06-01 22:00 | REPUSA ---
Clinical history: cramping. Findings: Real-time limited transabdominal ultrasound images of the pelvis were obtained. There is a single live intrauterine . heart rate measures 135 beats per minute.. No subchorionic hemorrhage is noted. There is no evidence of free fluid. Impression: Single live intrauterine with a heart rate of 135 bpm.
[2017-06-01 22:08] LABS: ANION GAP 7 MEQ/L (8-16); BLOOD UREA NITROGEN 7 MG/DL (7-18); CALCIUM LEVEL 8.9 MG/DL (8.5-10.1); CARBON DIOXIDE LEVEL 25 MEQ/L (21-32); CHLORIDE LEVEL 104 MEQ/L (98-107); CREATININE FOR GFR 0.81 MG/DL (0.55-1.02); GLUCOSE, FASTING 94 MG/DL (70-105); POTASSIUM SERUM 3.6 MEQ/L (3.5-5.1); SODIUM LEVEL 136 MEQ/L (136-145)
[2017-06-01 22:43] LABS: HCG, SERUM QUANTITATIVE 75009 MIU/ML
[2017-06-01] MEDS ORDERED: REGL10TA6 PO (22:51)
[2017-06-01] MEDS ORDERED: MACR100C43 PO (22:51)
[2017-06-01] MEDS ORDERED: NITROFURANTOIN (MACROBID) 100 MG CAP PO ONE (23:00)
[2017-06-01 23:01] VITALS: BP 122/74
== END 2017-06-01 23:03 | disposition home or self-care (01) ==
LOC: M ED 20:35
DX: O23.41 Unspecified infection of urinary tract in pregnancy, first trimester (principal); O21.9 Vomiting of pregnancy, unspecified; Z3A.01 Less than 8 weeks gestation of pregnancy; Z79.2 Long term (current) use of antibiotics; Z87.19 Personal history of other diseases of the digestive system; Z87.42 Personal history of other diseases of the female genital tract
CPT/HCPCS: 76815; 80048; 81001; 84702; 85025; 96374; 99284; G0463; J2765

== ENCOUNTER → 2017-07-10 | Outpatient (REF) | payer OTHER ==
[2017-07-10 19:22] LABS: HEMATOCRIT 37.9 % (36.0-47.0); HEMOGLOBIN 12.3 g/dl (12.0-16.0); MEAN CORPUSCULAR HEMOGLOBIN 26.6 pg (27.0-33.0); MEAN CORPUSCULAR HGB CONC 32.5 g/dl (32.0-36.5); MEAN CORPUSCULAR VOLUME 81.9 fl (80.0-96.0); PLATELET COUNT, AUTOMATED 360 10^3/uL (150-450); RED BLOOD COUNT 4.63 10^6/uL (4.00-5.40); RED CELL DISTRIBUTION WIDTH 13.8 % (11.5-14.5); WHITE BLOOD COUNT 8.6 10^3/uL (4.0-10.0)
[2017-07-10 19:59] LABS: HCG, SERUM QUANTITATIVE 48552 MIU/ML
[2017-07-10 22:18] LABS: CHLAMYDIA DNA AMPLIFICATION NEGATIVE (NEGATIVE); GC DNA AMPLIFICATION NEGATIVE (NEGATIVE)
[2017-07-11 11:24] LABS: RUBELLA IgG QUALITATIVE IMMUNE (IMMUNE)
[2017-07-11 11:46] LABS: HBsAg Prenatal NEGATIVE (NEGATIVE)
[2017-07-11 11:54] LABS: HIV 1&2 SCREEN CENTAUR NEGATIVE (NEGATIVE)
[2017-07-11 11:54] LABS: HEPATITIS C VIRUS ABY INDEX < 0.0 INDEX (<0.8)
== END ==
LOC: M LAB REF 17:08
DX: O36.80X0 Pregnancy with inconclusive fetal viability, not applicable or unspecified (principal)

== ENCOUNTER → 2017-08-31 | Outpatient (CLI) | payer OTHER | LOC: M RAD 12:42 | DX: Z36.9 Encounter for antenatal screening, unspecified (principal); Z3A.20 20 weeks gestation of pregnancy | CPT/HCPCS: 76811 ==

== ENCOUNTER 2017-09-29 11:49 | Emergency (ER) | payer OTHER ==
[2017-09-29] MEDS: ALBUTEROL SULFATE 2.5 MG/0.5 ML INH NEB SOLN NEB (12:36)
[2017-09-29 12:42] LABS: BASO % 0.2 % (0.0-1.0); EOS # 0.1 10^3/uL (0.0-0.50); EOS % 0.9 % (0.0-3.0); HEMATOCRIT 33.7 % (36.0-47.0); HEMOGLOBIN 10.7 g/dl (12.0-15.5); IMMATURE GRANULOCYTE % 1.5 % (0-3.0); LYMPH # 2.2 10^3/uL (1.5-6.5); LYMPH % 13.2 % (24.0-44.0); MEAN CORPUSCULAR HEMOGLOBIN 26.9 pg (27.0-33.0); MEAN CORPUSCULAR HGB CONC 31.8 g/dl (32.0-36.5); MEAN CORPUSCULAR VOLUME 84.7 fl (80.0-96.0); MONO # 1.1 10^3/uL (0.0-0.8); MONO % 6.6 % (0.0-5.0); NEUTROPHILS # 12.7 10^3/uL (1.8-7.7); NEUTROPHILS % 77.6 % (36.0-66.0); PLATELET COUNT, AUTOMATED 315 10^3/uL (150-450); RED BLOOD COUNT 3.98 10^6/uL (4.00-5.40); RED CELL DISTRIBUTION WIDTH 14.6 % (11.5-14.5); WHITE BLOOD COUNT 16.3 10^3/uL (4.0-10.0)
[2017-09-29 12:56] LABS: INR 0.94; PROTHROMBIN TIME 12.7 SECONDS (12.4-14.5)
[2017-09-29 12:57] LABS: PARTIAL THROMBOPLASTIN TIME 25.5 SECONDS (26.8-37.9)
[2017-09-29 13:04] LABS: ALBUMIN 2.9 GM/DL (3.2-5.2); ALBUMIN/GLOBULIN RATIO 0.85 (1.00-1.93); ALKALINE PHOSPHATASE 81 U/L (45-117); ALT/SGPT 18 U/L (12-78); ANION GAP 9 MEQ/L (8-16); AST/SGOT 14 U/L (7-37); BILIRUBIN,DIRECT 0.1 MG/DL (0.0-0.2); BILIRUBIN,TOTAL 0.5 MG/DL (0.2-1.0); BLOOD UREA NITROGEN 4 MG/DL (7-18); CALCIUM LEVEL 8.3 MG/DL (8.5-10.1); CARBON DIOXIDE LEVEL 23 MEQ/L (21-32); CHLORIDE LEVEL 111 MEQ/L (98-107); CPK CREATINE PHOSPHOKINASE 56 U/L (26-192); CREATININE FOR GFR 0.54 MG/DL (0.55-1.30); FREE T4 0.92 NG/DL (0.76-1.46); GLOMERULAR FILTRATION RATE > 60.0 (>60); GLUCOSE, FASTING 78 MG/DL (70-100); LIPASE 107 U/L (73-393); POTASSIUM SERUM 3.9 MEQ/L (3.5-5.1); SODIUM LEVEL 143 MEQ/L (136-145); TOTAL PROTEIN 6.3 GM/DL (6.4-8.2); TROPONIN I < 0.02 NG/ML (< 0.10)
[2017-09-29 13:10] LABS: CK-MB VALUE MASS < 1.0 NG/ML (<3.6); MB/CK RELATIVE INDEX 1.78 (< OR =4); NT-PRO BNP 26 PG/ML (<125); THYROID STIMULATING HORMONE 0.668 uIU/ML (0.358-3.740)
== END 2017-09-29 13:51 | disposition home or self-care (01) ==
LOC: M ED 11:49
DX: O99.512 Diseases of the respiratory system complicating pregnancy, second trimester (principal); J20.9 Acute bronchitis, unspecified; Z3A.24 24 weeks gestation of pregnancy
CPT/HCPCS: 71045

== ENCOUNTER → 2017-09-29 | Outpatient (REF) | payer OTHER | LOC: M SFHCLERA 10:24 | DX: J02.9 Acute pharyngitis, unspecified (principal) ==

== ENCOUNTER 2017-10-24 22:20 | Outpatient (CLI) | payer OTHER | END 2017-10-24 23:10 | disposition home or self-care (01) | LOC: M LDO 22:20 | DX: O26.893 Other specified pregnancy related conditions, third trimester (principal); N89.8 Other specified noninflammatory disorders of vagina; Z3A.27 27 weeks gestation of pregnancy | CPT/HCPCS: G0463 ==

== ENCOUNTER 2017-12-06 19:36 | Emergency (ER) | payer OTHER | END 2017-12-06 20:45 | disposition home or self-care (01) | LOC: M ED 19:36 | DX: O99.89 Other specified diseases and conditions complicating pregnancy, childbirth and the puerperium (principal); G56.03 Carpal tunnel syndrome, bilateral upper limbs; Z3A.34 34 weeks gestation of pregnancy; Z79.899 Other long term (current) drug therapy | CPT/HCPCS: 99282 ==

== ENCOUNTER 2018-01-14 21:49 | Outpatient (CLI) | payer OTHER ==
[2018-01-15] MEDS ORDERED: OXYTOCIN INJ 10 UNITS/ML VIAL (J2590) As Ordered (17:43)
[2018-01-15] MEDS ORDERED: KETOROLAC 60 MG/2 ML VIAL (J1885) As Ordered (17:43)
[2018-01-15] MEDS ORDERED: MORPHINE PRES-FREE INJ 10 MG/10 ML VIAL (J2274) As Ordered (17:43)
[2018-01-15] MEDS ORDERED: dexameTHASONE 4 MG/ML 1ML VIAL (J1100) As Ordered (17:43)
[2018-01-15] MEDS ORDERED: ONDANSETRON 4MG/2ML VIAL (J2405) As Ordered (17:43)
[2018-01-15] MEDS ORDERED: PHENYLephrine HCL 500 MCG/5 ML (100MCG/ML) SYRINGE (J2370) As Ordered (17:45)
== END 2018-01-15 00:33 | disposition home or self-care (01) ==
LOC: M LDO 21:49
DX: O47.1 False labor at or after 37 completed weeks of gestation (principal); Z3A.38 38 weeks gestation of pregnancy
CPT/HCPCS: J2405

== ENCOUNTER 2018-01-15 08:21 | Inpatient (IN) | payer OTHER ==
[2018-01-15] MEDS: LACTATED RINGER'S 1000 ML IV (12:43)
[2018-01-15] MEDS: LR 1,000 ML IV ×3 (13:13→18:30)
[2018-01-15 13:33] LABS: HEMATOCRIT 35.8 % (36.0-47.0); HEMOGLOBIN 11.5 g/dl (12.0-15.5); MEAN CORPUSCULAR HEMOGLOBIN 25.8 pg (27.0-33.0); MEAN CORPUSCULAR HGB CONC 32.1 g/dl (32.0-36.5); MEAN CORPUSCULAR VOLUME 80.3 fl (80.0-96.0); RED BLOOD COUNT 4.46 10^6/uL (4.00-5.40); RED CELL DISTRIBUTION WIDTH 16.6 % (11.5-14.5); WHITE BLOOD COUNT 25.6 10^3/uL (4.0-10.0)
[2018-01-15 13:54] LABS: POS COUNT POS FLAG
[2018-01-15 16:30] LABS: PLATELET ESTIMATE NORMAL (NORMAL)
[2018-01-15] MEDS ORDERED: TERBUTALINE SULFATE 1 MG/ML VIAL (J3105) As Ordered (16:57)
[2018-01-15] MEDS ORDERED: ceFAZolin 2 GM/D5W 50 ML IV BAG (J0690 PER 500MG) As Ordered (16:58)
[2018-01-15] MEDS ORDERED: BICITRA 30ML SOLN UDC As Ordered (16:59)
[2018-01-15] MEDS: BICITRA 30ML SOLN UDC PO (17:00)
[2018-01-15] MEDS ORDERED: ONDANSETRON 4MG/2ML VIAL (J2405) IV (17:24)
[2018-01-15] MEDS ORDERED: NALOXONE INJ 0.4 MG/1 ML VIAL (J2310) IV ×2 (17:24)
[2018-01-15] MEDS ORDERED: METOCLOPRAMIDE INJ 10MG/2ML VIAL (J2765) IV (17:24)
[2018-01-15 17:51] LABS: CORD GAS ABE V -7.1; CORD GAS O2 SAT V 40.5 %; CORD GAS PCO2 V 46.3 mmHg; CORD GAS PH V 7.254 UNITS; CORD GAS PO2 V 19.7 mmHg; CORD GAS SBC V 17.6 MEQ/L; CORD GAS TCO2 V 21.5 MEQ/L
[2018-01-15 17:54] LABS: CORD GAS ABE A -7.6; CORD GAS HCO3 A 21.1 MEQ/L; CORD GAS O2 SAT A < 15.0 %; CORD GAS PH A 7.193 UNITS; CORD GAS PO2 A 10.4 mmHg; CORD GAS TCO2 A 22.8 MEQ/L
[2018-01-15] MEDS: OXYTOCIN DRIP 30 UNITS in APPROPRIATE DILUENT 1 EA IV (18:21)
[2018-01-15] MEDS ORDERED: diphenhydrAMINE INJ 50MG/ML VIAL (J1200) IV (18:30)
[2018-01-15] MEDS ORDERED: RHOGAM 300 MCG (1500 IU) INJ (J2790) IM (18:30)
[2018-01-15] MEDS ORDERED: MEPERIDINE INJ 25 MG/ML VIAL (J2175) IV (18:30)
[2018-01-15] MEDS ORDERED: fentaNYL 100 MCG/2 ML INJECTION (J3010) IV (18:30)
[2018-01-15] MEDS ORDERED: NALBUPHINE HCL 10 MG/ML AMP (J2300) IV (18:30)
[2018-01-15] MEDS ORDERED: MEASLES,MUMPS,RUBELLA VACCINE INJ (MMR-II) (90707) SC (18:30)
[2018-01-15] MEDS ORDERED: ONDANSETRON 4MG/2ML VIAL (J2405) As Ordered (18:32)
[2018-01-15] MEDS: ONDANSETRON 4MG/2ML VIAL (J2405) IV (18:36)
[2018-01-15] MEDS: DOCUSATE SODIUM 100 MG CAP PO (20:19)
[2018-01-15] MEDS: METOCLOPRAMIDE INJ 10MG/2ML VIAL (J2765) IV (20:53)
[2018-01-15] MEDS: KETOROLAC 30 MG/ML VIAL (J1885) IV (23:07)
[2018-01-16] MEDS: KETOROLAC 30 MG/ML VIAL (J1885) IV ×3 (05:21→17:55)
[2018-01-16] MEDS: LR 1,000 ML IV ×3 (05:36→20:47)
[2018-01-16 06:48] LABS: HEMATOCRIT 30.4 % (36.0-47.0); HEMOGLOBIN 9.8 g/dl (12.0-15.5); MEAN CORPUSCULAR HEMOGLOBIN 25.9 pg (27.0-33.0); MEAN CORPUSCULAR HGB CONC 32.2 g/dl (32.0-36.5); MEAN CORPUSCULAR VOLUME 80.2 fl (80.0-96.0); PLATELET COUNT, AUTOMATED 285 10^3/uL (150-450); RED BLOOD COUNT 3.79 10^6/uL (4.00-5.40); RED CELL DISTRIBUTION WIDTH 16.3 % (11.5-14.5)
[2018-01-16 07:02] LABS: POS COUNT POS FLAG
[2018-01-16 07:03] LABS: WHITE BLOOD COUNT 31.1 10^3/uL (4.0-10.0)
[2018-01-16] MEDS: PRENATAL VITAMINS CHEWABLE TABLET PO (10:06)
[2018-01-16] MEDS: DOCUSATE SODIUM 100 MG CAP PO ×2 (10:06→20:22)
[2018-01-16] MEDS: NALBUPHINE HCL 10 MG/ML AMP (J2300) IV (10:59)
[2018-01-16] MEDS: PERCOCET 5MG/325MG TAB PO ×3 (17:02→23:03)
[2018-01-17] MEDS: IBUPROFEN 800 MG TAB PO ×2 (02:25→09:45)
[2018-01-17] MEDS: PERCOCET 5MG/325MG TAB PO ×3 (03:33→15:24)
[2018-01-17 05:28] LABS: HEMATOCRIT 28.3 % (36.0-47.0); HEMOGLOBIN 8.9 g/dl (12.0-15.5); MEAN CORPUSCULAR HEMOGLOBIN 25.8 pg (27.0-33.0); MEAN CORPUSCULAR HGB CONC 31.4 g/dl (32.0-36.5); PLATELET COUNT, AUTOMATED 262 10^3/uL (150-450); RED BLOOD COUNT 3.45 10^6/uL (4.00-5.40); RED CELL DISTRIBUTION WIDTH 16.5 % (11.5-14.5); WHITE BLOOD COUNT 19.9 10^3/uL (4.0-10.0)
[2018-01-17] MEDS: DOCUSATE SODIUM 100 MG CAP PO (09:44)
[2018-01-17] MEDS: PRENATAL VITAMINS CHEWABLE TABLET PO (09:45)
== END 2018-01-17 18:00 | disposition home or self-care (01) | DRG 766 ==
LOC: M LDO 08:21 → M OBS 01-17 14:20 → M LDI 12:55 → M OBS 20:07
PROVIDERS: Obstetrics & Gynecology
PROC: 10D00Z1 Extraction of Products of Conception, Low, Open Approach (ICD-10-PCS; principal; 2018-01-15 17:10)
DX: O77.0 Labor and delivery complicated by meconium in amniotic fluid (principal); Z3A.39 39 weeks gestation of pregnancy; O99.02 Anemia complicating childbirth; D64.9 Anemia, unspecified; O76 Abnormality in fetal heart rate and rhythm complicating labor and delivery; Z37.0 Single live birth

== ENCOUNTER → 2018-07-26 | Outpatient (REF) | payer OTHER ==
[~2018-07-26] MED LIST changes: +COLA100C5 PO; +IBUP-1114 PO; +MACR100C43 PO; +OXYC1TAB23 PO; +PRENCHW PO; +REGL10TA6 PO; +VENTAER INH; +VITA500T PO; +ZOFR4TAB14 PO; -ZOFR4TAB3 PO
== END ==
LOC: M SFHCLERA 16:08
PROVIDERS: ATTEND Nurse Practitioner Family
DX: R53.81 Other malaise (principal)

== ENCOUNTER 2018-10-07 16:09 | Emergency (ER) | payer OTHER ==
[~2018-10-07] VITALS: Ht 144.8 cm; Wt 59.1 kg
[2018-10-07] MEDS ORDERED: KETOROLAC 30 MG/ML VIAL (J1885) IV ONE (17:30)
[2018-10-07] MEDS ORDERED: NS 1,000 ML IV ONE (17:30)
[2018-10-07 19:01] LABS: BASO # 0.1 10^3/uL (0.0-0.2); BASO % 0.7 % (0.0-1.0); EOS # 0.3 10^3/uL (0.0-0.50); EOS % 4.1 % (0.0-3.0); HEMATOCRIT 36.7 % (36.0-47.0); HEMOGLOBIN 11.4 g/dl (12.0-15.5); LYMPH # 2.8 10^3/uL (1.5-6.5); LYMPH % 34.1 % (24.0-44.0); MEAN CORPUSCULAR HEMOGLOBIN 25.3 pg (27.0-33.0); MEAN CORPUSCULAR HGB CONC 31.1 g/dl (32.0-36.5); MEAN CORPUSCULAR VOLUME 81.4 fl (80.0-96.0); MONO # 0.7 10^3/uL (0.0-0.8); MONO % 8.7 % (0.0-5.0); NEUTROPHILS # 4.2 10^3/uL (1.8-7.7); NEUTROPHILS % 52.2 % (36.0-66.0); PLATELET COUNT, AUTOMATED 393 10^3/uL (150-450); RED BLOOD COUNT 4.51 10^6/uL (4.00-5.40); WHITE BLOOD COUNT 8.1 10^3/uL (4.0-10.0)
[2018-10-07 19:14] LABS: ALBUMIN 3.9 GM/DL (3.2-5.2); ALT/SGPT 17 U/L (12-78); BILIRUBIN,DIRECT 0.2 MG/DL (0.0-0.2); BILIRUBIN,TOTAL 0.6 MG/DL (0.2-1.0); BLOOD UREA NITROGEN 8 MG/DL (7-18); CALCIUM LEVEL 8.6 MG/DL (8.5-10.1); CARBON DIOXIDE LEVEL 26 MEQ/L (21-32); CHLORIDE LEVEL 109 MEQ/L (98-107); CREATININE FOR GFR 0.72 MG/DL (0.55-1.30); GLOMERULAR FILTRATION RATE > 60.0 (>60); GLUCOSE, FASTING 78 MG/DL (70-100); LIPASE 91 U/L (73-393); POTASSIUM SERUM 3.8 MEQ/L (3.5-5.1); SODIUM LEVEL 140 MEQ/L (136-145); TOTAL PROTEIN 7.4 GM/DL (6.4-8.2)
[2018-10-07 19:27] LABS: HCG, SERUM QUALITATIVE NEGATIVE (NEGATIVE)
--- NOTE | 2018-10-07 21:05 | REPVR ---
EXAM: CT Abdomen and Pelvis Without Contrast EXAM DATE/TIME: 10/07/2018 7:40 PM CLINICAL HISTORY: 23 years old, female; Abdominal pain; Additional info: Left flank pain TECHNIQUE: Imaging protocol: Axial computed tomography images of the abdomen and pelvis without contrast. Coronal and sagittal reformatted images were created and reviewed. Radiation optimization: All CT scans at this facility use at least one of these dose optimization techniques: automated exposure control; mA and/or kV adjustment per patient size (includes targeted exams where dose is matched to clinical indication); or iterative reconstruction. COMPARISON: CT ABD PELVIS WITH CONTRAST 09/08/2013 7:32 PM FINDINGS: ABDOMEN: Liver: Normal. No mass. Gallbladder and bile ducts: Normal. No calcified stones. No ductal dilation. Pancreas: Normal. No ductal dilation. Spleen: Normal. No splenomegaly. Adrenals: Normal. No mass. Kidneys and ureters: Normal. No hydronephrosis. Stomach and bowel: Normal. No obstruction. No mucosal thickening. Appendix: No evidence of appendicitis. PELVIS: Bladder: Unremarkable as visualized. Reproductive: Unremarkable as visualized. ABDOMEN and PELVIS: Intraperitoneal space: There is trace pelvic fluid, which may be physiologic. Bones/joints: No acute fracture. No dislocation. Soft tissues: Unremarkable. Vasculature: Normal. No abdominal aortic aneurysm. Lymph nodes: Normal. No enlarged lymph nodes. IMPRESSION: No acute findings in the abdomen or pelvis. Electronically signed by: Jen Arizmendi On 10/07/2018 21:05:32 PM
[2018-10-07] MEDS ORDERED: CYCL5TAB PO (21:18)
[2018-10-07] MEDS ORDERED: KETO10TAB PO (21:18)
[2018-10-07 21:35] VITALS: BP 140/82
== END 2018-10-07 21:38 | disposition home or self-care (01) ==
LOC: M ED 16:09
DX: M54.5 Low back pain (principal); Z87.42 Personal history of other diseases of the female genital tract
CPT/HCPCS: 74176; 80048; 80076; 81001; 83690; 84703; 85025; 87086; 96361; 96374; 99284; J1885

== ENCOUNTER 2019-02-08 16:59 | Emergency (ER) | payer OTHER ==
[~2019-02-08] VITALS: Ht 144.8 cm; Wt 55.9 kg
[~2019-02-08 16:59] MED LIST changes: +CYCL5TAB PO; +KETO10TAB PO
[2019-02-08 17:46] LABS: APPEARANCE, URINE CLEAR (CLEAR); BACTERIA, URINE AUTO NEGATIVE (NEGATIVE); BILIRUBIN, URINE AUTO NEGATIVE (NEGATIVE); BLOOD, URINE BLOOD NEGATIVE (NEGATIVE); COLOR, URINE YELLOW (YELLOW); GLUCOSE, URINE (UA) AUTO NEGATIVE (NEGATIVE); KETONE, URINE AUTO NEGATIVE (NEGATIVE); LEUKOCYTE ESTERASE, URINE AUTO NEGATIVE (NEGATIVE); MUCUS, URINE SMALL (NEGATIVE); NITRITE, URINE AUTO NEGATIVE (NEGATIVE); PROTEIN, URINE AUTO NEGATIVE (NEGATIVE); RBC, URINE AUTO 1 /HPF (0-3); SPECIFIC GRAVITY URINE AUTO 1.019 (1.002-1.035); SQUAMOUS EPITHELIAL CELL UR AU 2 /HPF (0-6); UROBILINOGEN, URINE AUTO 0.2 mg/dL (0.0-2.0); WBC, URINE AUTO 1 /HPF (0-3)
[2019-02-08 17:47] LABS: BASO # 0.1 10^3/uL (0.0-0.2); BASO % 0.7 % (0.0-1.0); EOS # 0.1 10^3/uL (0.0-0.50); EOS % 0.9 % (0.0-3.0); HEMATOCRIT 36.4 % (36.0-47.0); HEMOGLOBIN 11.4 g/dl (12.0-15.5); LYMPH % 32.9 % (24.0-44.0); MEAN CORPUSCULAR HEMOGLOBIN 25.8 pg (27.0-33.0); MEAN CORPUSCULAR HGB CONC 31.3 g/dl (32.0-36.5); MEAN CORPUSCULAR VOLUME 82.4 fl (80.0-96.0); MONO # 0.6 10^3/uL (0.0-0.8); MONO % 6.6 % (0.0-5.0); NEUTROPHILS # 5.3 10^3/uL (1.8-7.7); NEUTROPHILS % 58.7 % (36.0-66.0); PLATELET COUNT, AUTOMATED 367 10^3/uL (150-450); RED BLOOD COUNT 4.42 10^6/uL (4.00-5.40); WHITE BLOOD COUNT 9.1 10^3/uL (4.0-10.0)
[2019-02-08] MEDS ORDERED: GI COCKTAIL 50ML BTL(HYOSCYAMINE/MAALOX/LIDOCAINE VISCOUS)(1:3:1) PO ONE (18:15)
[2019-02-08 18:42] LABS: ALBUMIN 3.6 GM/DL (3.2-5.2); ALT/SGPT 16 U/L (12-78); BILIRUBIN,TOTAL 0.7 MG/DL (0.2-1.0); BLOOD UREA NITROGEN 10 MG/DL (7-18); CALCIUM LEVEL 8.5 MG/DL (8.5-10.1); CARBON DIOXIDE LEVEL 23 MEQ/L (21-32); CHLORIDE LEVEL 108 MEQ/L (98-107); CREATININE FOR GFR 0.73 MG/DL (0.55-1.30); GLOMERULAR FILTRATION RATE > 60.0 (>60); GLUCOSE, FASTING 100 MG/DL (70-100); POTASSIUM SERUM 4.2 MEQ/L (3.5-5.1); SODIUM LEVEL 140 MEQ/L (136-145); TOTAL PROTEIN 6.8 GM/DL (6.4-8.2)
[2019-02-08 19:05] VITALS: BP 128/81
[2019-02-08] MEDS ORDERED: PROT1TAB2 PO (19:11)
== END 2019-02-08 19:18 | disposition home or self-care (01) ==
LOC: M ED 16:59
DX: K29.70 Gastritis, unspecified, without bleeding (principal)

== ENCOUNTER 2019-04-06 18:56 | Emergency (ER) | payer OTHER ==
[~2019-04-06] VITALS: Ht 144.8 cm; Wt 61.4 kg
[~2019-04-06 18:56] MED LIST changes: +PROT1TAB2 PO
[2019-04-06 19:43] LABS: BASO % 0.2 % (0.0-1.0); EOS % 0.1 % (0.0-3.0); HEMATOCRIT 36.3 % (36.0-47.0); HEMOGLOBIN 11.4 g/dl (12.0-15.5); LYMPH % 9.9 % (24.0-44.0); MEAN CORPUSCULAR HEMOGLOBIN 26.1 pg (27.0-33.0); MEAN CORPUSCULAR HGB CONC 31.4 g/dl (32.0-36.5); MEAN CORPUSCULAR VOLUME 83.1 fl (80.0-96.0); MONO # 1.2 10^3/uL (0.0-0.8); MONO % 6.1 % (0.0-5.0); NEUTROPHILS # 16.5 10^3/uL (1.5-8.5); NEUTROPHILS % 83.2 % (36.0-66.0); PLATELET COUNT, AUTOMATED 337 10^3/uL (150-450); RED BLOOD COUNT 4.37 10^6/uL (4.00-5.40); WHITE BLOOD COUNT 19.8 10^3/uL (4.0-10.0)
[2019-04-06 20:07] LABS: ALBUMIN 3.6 GM/DL (3.2-5.2); ALT/SGPT 14 U/L (12-78); BILIRUBIN,DIRECT 0.3 MG/DL (0.0-0.2); BLOOD UREA NITROGEN 6 MG/DL (7-18); CARBON DIOXIDE LEVEL 27 MEQ/L (21-32); CHLORIDE LEVEL 109 MEQ/L (98-107); CREATININE FOR GFR 0.73 MG/DL (0.55-1.30); GLOMERULAR FILTRATION RATE > 60.0 (>60); GLUCOSE, FASTING 105 MG/DL (70-100); LIPASE 43 U/L (73-393); POTASSIUM SERUM 4.2 MEQ/L (3.5-5.1); SODIUM LEVEL 140 MEQ/L (136-145); TOTAL PROTEIN 7.2 GM/DL (6.4-8.2)
[2019-04-06] MEDS ORDERED: GI COCKTAIL 50ML BTL(HYOSCYAMINE/MAALOX/LIDOCAINE VISCOUS)(1:3:1) PO ONE (20:30)
[2019-04-06] MEDS ORDERED: KETOROLAC 30 MG/ML VIAL (J1885) IV ONE (20:45)
[2019-04-06] MEDS ORDERED: NS 1,000 ML IV ONE (20:45)
[2019-04-06] MEDS ORDERED: ISOVUE-370 76% 100ML VIAL (Q9967) As Ordered ONE (20:55)
--- NOTE | 2019-04-06 21:57 | REPVR ---
PROCEDURE INFORMATION: Exam: CT Abdomen And Pelvis With Contrast Exam date and time: 04/06/2019 9:21 PM Clinical history: 23 years old, female; Abdominal pain; Additional info: Generalized abdominal pain TECHNIQUE: Imaging protocol: Computed tomography of the abdomen and pelvis with intravenous contrast. Radiation optimization: All CT scans at this facility use at least one of these dose optimization techniques: automated exposure control; mA and/or kV adjustment per patient size (includes targeted exams where dose is matched to clinical indication); or iterative reconstruction. Contrast material: ISO 370; Contrast volume: 100 ml; Contrast route: IV; COMPARISON: CT ABD PELVIS W/O CONTRAST 10/07/2018 7:33 PM FINDINGS: Lungs: Mild left basilar dependent change. Liver: 8 mm left hepatic cyst. There are a few additional tiny hepatic hypodensities which are to small to characterize. Gallbladder and bile ducts: Normal. No calcified stones. No ductal dilation. Pancreas: Normal. No ductal dilation. Spleen: Normal. No splenomegaly. Adrenals: Normal. No mass. Kidneys and ureters: Normal. No hydronephrosis. Stomach and bowel: Unremarkable. No obstruction. No mucosal thickening. Appendix: No evidence of appendicitis. Intraperitoneal space: Unremarkable. No free air. No significant fluid collection. Vasculature: Unremarkable. No abdominal aortic aneurysm. Lymph nodes: Unremarkable. No enlarged lymph nodes. Bladder: Unremarkable as visualized. Reproductive: Probable follicles involving the ovaries. Bones/joints: Unremarkable. No acute fracture. Soft tissues: Unremarkable. IMPRESSION: No acute abnormality. COMMENT: Consistent with the [employer]'s Incidental Findings Committee Report (J Am Rain Radiol 2010): Unless the patient's specific circumstances suggest otherwise, any liver lesion 0.5 cm or less, any cystic kidney lesion less than 1.0 cm, and/or any adrenal lesion 1.0 cm or less not otherwise characterized in this report as possessing suspicious or indeterminate imaging features is/are highly likely to be benign and do not require follow-up imaging or biopsy. Electronically signed by: Shukri Schreiber On 04/06/2019 21:57:19 PM
--- NOTE | 2019-04-07 00:59 | REPVR ---
PROCEDURE INFORMATION: Exam: US Abdomen Limited, Right Upper Quadrant Exam date and time: 04/07/2019 12:43 AM Clinical history: 23 years old, female; Abdominal pain; Acute; Additional info: Ruq pain, elevated enzymes TECHNIQUE: Imaging protocol: Real-time ultrasound of the abdomen with image documentation. Examination was focused on the right upper quadrant. COMPARISON: CT ABD/PEL W/IV CONTRAST ONLY 04/06/2019 9:05 PM FINDINGS: Liver: 1 cm left hepatic cyst. 6 mm right hepatic hyperechoic focus. Gallbladder: No cholelithiasis. No pathologic gallbladder wall thickening. Common bile duct: Normal. No stones. No dilation. Pancreas: No focal abnormality involving the visualized pancreas. Right kidney: Normal. No mass. No hydronephrosis. Other findings: No right-sided hydronephrosis. IMPRESSION: 1. Normal gallbladder. 2. 1 cm left hepatic cyst. 3. 6 mm right hepatic hyperechoic focus, probable tiny hemangioma. Electronically signed by: Shukri Schreiber On 04/07/2019 00:58:20 AM
[2019-04-07] MEDS ORDERED: ONDA4TAB6 PO (01:20)
[2019-04-07 01:33] VITALS: BP 107/54
--- NOTE | 2019-04-07 06:54 | ER ---
DATE OF CONSULTATION: 04/06/2019 REASON FOR CONSULTATION: Abdominal pain with elevated white blood cell count. HISTORY OF PRESENT ILLNESS: The patient is a pleasant 23-year-old woman who reports that she awakened at about 5 o'clock in the morning on April 06 and noted some abdominal pain. She denied any nausea or vomiting at that time. She reported that she had last had anything to eat at about 7:00 p.m. on the and had slept without any apparent problems. 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 She had some Power Sushma to drink and noted the onset of some nausea and reported an episode of vomiting. She felt chilled but did not actually have shaking chills and denied any definite fever. She has had no symptoms suggestive of a urinary tract infection or an upper respiratory infection. She last had a bowel movement that she reported was normal at about 10 o'clock in the morning. She noted persistent discomfort during the course of the day. During the day the discomfort moved somewhat lower in the abdomen and she reports that she had noticed it more in the right and left lower quadrants particularly when walking. She presented to the emergency department at about 7:00 p.m. for evaluation. In the emergency department she underwent evaluation with some laboratory studies. She was found to have an elevation of her white blood cell count to 20,000 with a shift to 83% neutrophils, but there were no immature forms noted. Her bilirubin was slightly elevated at 2.0. A CT scan of the abdomen and pelvis was obtained which was interpreted by the radiologist as normal. The emergency department physician's secretary administrative assistant saw the patient and reviewed the imaging and reviewed this with Dr. Monge and reported that they were concerned about a possible finding on the CT scan and I was asked to see the patient to evaluate her regarding the possible CT abnormality and the etiology of her discomfort. She does have a history of a previous visit to the emergency department in January at which visit she reported epigastric pain that had begun two days earlier. She was diagnosed with gastritis and given a prescription for a proton pump inhibitor. She does report that that seemed to help. She has had no history of hepatitis, pancreatitis, or yellow jaundice. She reports only occasional alcohol intake. ALLERGIES: The patient denies any known drug allergies. MEDICATIONS: The patient is on no routine medications. PAST SURGICAL HISTORY: The patient had a section slightly over a year ago. MEDICAL HISTORY: The patient denies any history of heart or lung problems. She has no history of renal issues. Her partner reports that she has had two a urinary tract infections in the past. She reports that she is approximately midcycle with her last menstrual period about 2 weeks ago. She has no orthopedic issues. There is no history of deep vein thrombosis (DVT) or pulmonary embolus. She has no history of seizure, stroke or chronic severe headaches. SOCIAL HISTORY: The patient has one child. She smokes cigarettes occasionally and drinks alcohol occasionally. FAMILY HISTORY: Noncontributory at this time. PHYSICAL EXAMINATION: The patient's most recent vital signs in the emergency department show a temperature of 98.5, pulse of 82, respirations of 20 and blood pressure of 138/89. She is lying quietly on the ER stretcher when I enter. She is alert and oriented. She answers questions appropriately. She moves on the stretcher without obvious discomfort. Skin is warm and dry. Sclerae are anicteric. Mucous membranes are moist. Neck is supple without mass or bruit. Heart exam shows a regular rate and rhythm. She is not tachycardic. The lungs are clear. The abdomen is flat. She has bowel sounds present. There is no apparent tenderness to percussion throughout the abdomen. On palpation, the abdomen is soft throughout without appreciable mass. There is no guarding and no rebound. She reports some mild tenderness fairly deep to palpation in the lower quadrants bilaterally, but does not complain of any discomfort in the epigastrium at this time. Lower extremities show no peripheral edema and she has palpable pedal pulses bilaterally. She has positive radial pulses bilaterally as well. LABORATORY STUDIES: Includes a CBC showing a white count of 20,000, hemoglobin of 11, hematocrit 36 and platelet count of 337,000. Differential count shows 83% neutrophils, 10% lymphocytes and 6% monocytes. Her chemistry profile shows a sodium of 140, potassium 4.2, chloride 109, CO2 of 27, BUN of 6, creatinine 0.73 and glucose of 105. Her lactic acid is normal at 1. Her total bilirubin is slightly elevated 2.0 and her AST, ALT and alk phos are all normal. She has a lipase that is normal at 43. Urinalysis shows a pH of 9, specific gravity 1.011 and the dipstick was negative. She had trace leukocyte esterase but her microscopic exam showed 3 white cells and 2 red cells per high-power field. Her CT scan of the abdomen and pelvis was read by the radiologist as showing no acute findings. On my review of the imaging the gallbladder appears somewhat full but not thickened and there are no stones seen. The appendix does not show any evidence of inflammation. There is no free fluid or free air seen. IMPRESSION: Abdominal pain of unclear etiology. Her initial symptoms with epigastric pain in a young woman with one child were somewhat suggestive of biliary colic. The CT scan did not show gallstones, but if these are noncalcified then they may not show on a CT. An ultrasound would not be unreasonable at this point. However, at this point she is not having any epigastric tenderness and is complaining more of lower abdominal tenderness, though on exam this is fairly mild to my exam. She is about mid cycle, but there is no free fluid to suggest mittelschmerz. She certainly could have some form of viral illness. RECOMMENDATIONS: Certainly at this point the patient has no indications for urgent surgical intervention. I discussed her findings and my impression with the physician's secretary administrative assistant in the minor treatment area. I advised her that if the patient were comfortable enough for discharge home, she could certainly followup with her primary physician. I thought that a gallbladder ultrasound at some point would be a reasonable study as well to look for the possibility of noncalcified gallstones. Certainly if the patient is discharged she should be instructed as usual that she should return if her discomfort worsens. TRICIA
== END 2019-04-07 01:40 | disposition home or self-care (01) ==
LOC: M ED 18:56
DX: D72.829 Elevated white blood cell count, unspecified (principal); R11.2 Nausea with vomiting, unspecified; Z87.19 Personal history of other diseases of the digestive system; Z86.19 Personal history of other infectious and parasitic diseases; Z87.59 Personal history of other complications of pregnancy, childbirth and the puerperium; Z87.448 Personal history of other diseases of urinary system; Q44.6 Cystic disease of liver
CPT/HCPCS: 74177; 76705; 80048; 80076; 81001; 83605; 83690; 84702; 85025; 87040; 87086; 96361; 96374; 99284; J1885; Q9967

== ENCOUNTER → 2019-10-23 | Outpatient (REF) | payer OTHER ==
[~2019-10-23] MED LIST changes: +ONDA4TAB6 PO; +VITA-243 PO; -VITA500T PO
== END ==
LOC: M SFHCLERA 10:07
PROVIDERS: ATTEND Physician Assistant
DX: R19.7 Diarrhea, unspecified (principal)

== ENCOUNTER 2020-05-06 10:24 | Emergency (ER) | payer OTHER, SELFPAY ==
[~2020-05-06] VITALS: Ht 144.8 cm; Wt 55.5 kg
[2020-05-06] MEDS ORDERED: NS 1,000 ML IV ONE (12:30)
[2020-05-06] MEDS ORDERED: ACETAMINOPHEN 500 MG TAB PO ONE (12:30)
[2020-05-06 13:27] LABS: BASO % 0.6 % (0.0-1.0); EOS # 0.1 10^3/uL (0.0-0.5); HEMATOCRIT 35.2 % (36.0-47.0); LYMPH # 2.1 10^3/uL (1.5-5.0); LYMPH % 33.3 % (24.0-44.0); MEAN CORPUSCULAR HEMOGLOBIN 26.3 pg (27.0-33.0); MEAN CORPUSCULAR HGB CONC 31.3 g/dl (32.0-36.5); MEAN CORPUSCULAR VOLUME 84.2 fl (80.0-96.0); MONO # 0.5 10^3/uL (0.0-0.8); MONO % 7.9 % (0.0-5.0); NEUTROPHILS # 3.5 10^3/uL (1.5-8.5); PLATELET COUNT, AUTOMATED 341 10^3/uL (150-450); RED BLOOD COUNT 4.18 10^6/uL (4.00-5.40); WHITE BLOOD COUNT 6.2 10^3/uL (4.0-10.0)
[2020-05-06 13:59] LABS: ALBUMIN 3.7 GM/DL (3.2-5.2); ALT/SGPT 12 U/L (12-78); BILIRUBIN,DIRECT 0.3 MG/DL (0.0-0.2); BLOOD UREA NITROGEN 9 MG/DL (7-18); CALCIUM LEVEL 8.5 MG/DL (8.5-10.1); CARBON DIOXIDE LEVEL 24 MEQ/L (21-32); CHLORIDE LEVEL 112 MEQ/L (98-107); CREATININE FOR GFR 0.72 MG/DL (0.55-1.30); GLOMERULAR FILTRATION RATE > 60.0 (>60); GLUCOSE, FASTING 67 MG/DL (70-100); LIPASE 68 U/L (73-393); POTASSIUM SERUM 3.8 MEQ/L (3.5-5.1); SODIUM LEVEL 142 MEQ/L (136-145); TOTAL PROTEIN 6.9 GM/DL (6.4-8.2)
[2020-05-06 16:08] VITALS: BP 121/69
== END 2020-05-06 16:09 | disposition home or self-care (01) ==
LOC: M ED 10:24
DX: E16.2 Hypoglycemia, unspecified (principal); R19.7 Diarrhea, unspecified; R51.9 Headache, unspecified
CPT/HCPCS: 80048; 80076; 83690; 85025; 96360; 96361; 99284; U0002

== ENCOUNTER → 2020-06-09 | Outpatient (CLI) | payer SELFPAY | LOC: M LABSMTC 11:49 | PROVIDERS: ATTEND Pediatrics | DX: Z11.59 Encounter for screening for other viral diseases (principal) ==

== ENCOUNTER 2020-08-11 00:05 | Emergency (ER) | payer OTHER ==
[~2020-08-11] VITALS: Ht 144.8 cm; Wt 53.3 kg
--- OUTSIDE RECORDS SUMMARY | 2020-08-11 00:14 | CCD ---
Author Author [facility] Organization [facility] Address Unknown Phone Unavailable Care Team Providers Care Administrative Fellow Name Role Phone Feola, T Naila PA Unavailable Unavailable Feola, T Naila PA Unavailable Unavailable Feola, T Naila PA Unavailable Unavailable Feola, T Naila PA Unavailable Unavailable Feola, T Naila PA Unavailable Unavailable Feola, T Naila PA Unavailable Unavailable Feola, T Naila PA Unavailable Unavailable Feola, T Naila PA Unavailable Unavailable Feola, T Naila PA Unavailable Unavailable Feola, T Naila PA Unavailable Unavailable Feola, T Naila PA Unavailable Unavailable Feola, T Naila PA Unavailable Unavailable Feola, T Naila PA Unavailable Unavailable Feola, T Naila PA Unavailable Unavailable Feola, T Naila PA Unavailable Unavailable Feola, T Naila PA Unavailable Unavailable Feola, T Naila PA Unavailable Unavailable Feola, T Naila PA Unavailable Unavailable Feola, T Naila PA Unavailable Unavailable Feola, T Naila PA Unavailable Unavailable Feola, T Naila PA Unavailable Unavailable Feola, T Naila PA Unavailable Unavailable Feola, T Naila PA Unavailable Unavailable Feola, T Naila PA Unavailable Unavailable Feola, T Naila PA Unavailable Unavailable Feola, T Naila PA Unavailable Unavailable Feola, T Naila PA Unavailable Unavailable Feola, T Naila PA Unavailable Unavailable Feola, T Naila PA Unavailable Unavailable Feola, T Naila PA Unavailable Unavailable Feola, T Naila PA Unavailable Unavailable Feola, T Naila PA Unavailable Unavailable Feola, T Naila PA Unavailable Unavailable Feola, T Naila PA Unavailable Unavailable Feola, T Naila PA Unavailable Unavailable Feola, T Naila PA Unavailable Unavailable Feola, T Naila PA Unavailable Unavailable Re-disclosure Warning The records that you are about to access may contain information from federally-assisted alcohol or drug abuse programs. If such information is present, then the following federally mandated warning applies: This information has been disclosed to you from records protected by federal confidentiality rules (42 CFR part 2). The federal rules prohibit you from making any further disclosure of this information unless further disclosure is expressly permitted by the written consent of the person to whom it pertains or as otherwise permitted by 42 CFR part 2. A general authorization for the release of medical or other information is NOT sufficient for this purpose. The Federal rules restrict any use of the information to criminally investigate or prosecute any alcohol or drug abuse patient.The records that you are about to access may contain highly sensitive health information, the redisclosure of which is protected by Article 27-F of the [place] State Public Health law. If you continue you may have access to information: Regarding HIV / AIDS; Provided by facilities licensed or operated by the [facility] Office of Mental Health; or Provided by the [facility] Office for People With Developmental Disabilities. If such information is present, then the following [facility] mandated warning applies: This information has been disclosed to you from confidential records which are protected by state law. State law prohibits you from making any further disclosure of this information without the specific written consent of the person to whom it pertains, or as otherwise permitted by law. Any unauthorized further disclosure in violation of state law may result in a fine or fci sentence or both. A general authorization for the release of medical or other information is NOT sufficient authorization for further disc losure. Family History Family Member Name Family Member Gender Family Member Status Date o f Status Description Data Source(s) Unknown Unknown Problem MEDENT ([facility], ) Unknown Unknown Problem MEDENT ([facility], ) Unknown Unknown Problem MEDENT ([facility], ) Encounters Encounter Providers Location Date Indications Data Source(s ) Outpatient Attender: Naila MOJICA 021 11:30:25 AM EST - 08/06/2020 12:12:27 PM EST DocuTap ([facility] ) [facility] [address] [address] 10/22/2019 12:00:00 AM EDT eCW1 ([facility]) Insurance Providers Payer name Policy type / Coverage type Policy ID Covered green party ID Covered green party's relationship to dudley Policy Dudley Plan Information [facility] [id number] [facility] Commercial Insurance Co. [id number] Self [id number] [facility] [id number] SP [id number] SELF PAY ONLY [id number] SP [id number] SELF PAY ONLY [id number] 2 [id number] [facility] HUMANA [id number] [id number] [facility] O [id number] S [id number] [facility] HUMANA [id number] 2 [id number] ANSI-Not a Secondary Insurance [id number] [facility] [id number] SP [id number] [facility] [id number] SP [id number] [facility] [id number] O [id number] MEDICAID [id number] SP [id number] [facility] [id number] [id number] [facility] Health Maintenance Organization (HMO) Self SELF PAY UNAVAILABLE SP UNAVAILA BLE SELF PAY ONLY [id number] SP [id number] [facility] U [id number] Child [id number] Surgeries/Procedures Procedure Description Date Indications Data Source(s) URINE-NO MICRO 10/22/2019 12:00:00 AM EDT eCW1 ([facility]) URINE TEST 10/22/2019 12:00:00 AM EDT eCW1 ([facility]) Results ID Date Data Source [id number] 06/09/2020 12:00:00 AM EST [facility] Name Value Range Interpretation Code Description Data Brook rce(s) Supporting Document(s) SARS-CoV-2 (COVID-19) RNA [Presence] in Respiratory specimen by ELIZABETH with probe detection [facility] This lab was ordered by [facility] and reported by [employer]. ID Date Data Source GASTROINTESTINAL GI PANEL (GIPANEL) 10/23/2019 12:00:00 AM EDT eCW1 ([facility]) Name Value Range Interpretation Code Description Data Brook rce(s) Supporting Document(s) This Gastrointestinal PCR Panel detects the following bacteria, GASTROINTESTINAL (GI) PANEL eCW1 ([facility]) Procedure Vital Signs ID Date Data Source UNK Name Value Range Interpretation Code Description Data Source(s) Diastolic blood pressure 95 mm[Hg] 95 mm[Hg] eCW1 ([facility]) Systolic blood pressure 142 mm[Hg] 142 mm[Hg] e CW1 ([facility]) Body temperature 98.1 [degF] 98.1 [degF] eCW1 ( [facility]) Respiratory rate 16 /min 16 /min eCW1 ([facility]) Heart rate 74 /min 74 /min eCW1 ([facility]) Body mass index (BMI) [Ratio] 30.08 kg/m2 30.08 kg/m2 eCW1 ([facility]) Body height 57 [in_us] 57 [in_us] eCW1 ([facility]) Body weight Measured 139 [lb_av] 139 [lb_av] eC W1 ([facility])
[2020-08-11 01:41] VITALS: BP 129/87
[2020-08-11] MEDS ORDERED: POLYTRIM OPTH DROPS 10ML OU STA (01:42)
[2020-08-11] MEDS ORDERED: CETIRIZINE (ZyrTEC) 10 MG TAB PO ONE (01:45)
[2020-08-11] MEDS ORDERED: diphenhydrAMINE 50MG CAP PO ONE (01:45)
--- OUTSIDE RECORDS SUMMARY | 2020-08-11 02:15 | CCD ---
Author Author [facility] Organization [facility] Address Unknown Phone Unavailable Care Team Providers Care Museum Specialist Name Role Phone Feola, T Naila PA [...] is protected by Article 27-F of the [place] State Public Health law. If you continue you may have access to information: Regarding HIV / AIDS; Provided by facilities licensed or operated by the [facility] Office of Mental Health; or Provided by the [facility] Office for People With Developmental Disabilities. If such information is present, then the following [facility] mandated warning applies: This information has [...] law may result in a fine or prison sentence or both. A general authorization for the release of medical or other information is NOT sufficient authorization for further disc losure. Family History Family Member Name Family Member Gender Family Member Status Date o f Status Description Data Source(s) Unknown Unknown Problem MEDENT ([facility], ) Unknown Unknown Problem MEDENT ([facility], ) Unknown Unknown Problem MEDENT ([facility] ) Encounters Encounter Providers Location Date Indications Data Source(s ) Outpatient Attender: Naila MOJICA 021 11:30:25 AM EST - 08/06/2020 12:12:27 PM EST DocuTap ([facility] ) [facility] [address] [address] 10/22/2019 12:00:00 AM EDT eCW1 ([facility]) Insurance Providers Payer name Policy type / Coverage type Policy ID Covered libertarian ID Covered libertarian's relationship to dudley Policy Dudley Plan Information [facility] [id number] 82 [id number] [facility] Commercial Insurance Co. [id number] Self [id number] [facility] [id number] SP [id number] SELF PAY ONLY [id number] SP [id number] SELF PAY ONLY [id number] [facility] HUMANA [id number] 2 [id number] HUMANA [facility] O [id number] S [id number] [facility] HUMANA [id number] 2 [id number] ANSI-Not a Secondary Insurance [id number] [facility] [id number] SP [id number] [facility] [id number] SP [id number] [facility] [id number] O 0001 [id number] MEDICAID [id number] SP [id number] [facility] [id number] FA2 [id number] [facility] Health Maintenance Organization (HMO) Self SELF PAY UNAVAILABLE SP UNAVAILA BLE SELF PAY ONLY [id number] SP [id number] [facility] U [id number] Child [id number] Surgeries/Procedures Procedure Description Date Indications Data Source(s) URINE-NO MICRO 10/22/2019 12:00:00 AM EDT eCW1 ([facility]) URINE TEST 10/22/2019 12:00:00 AM EDT eCW1 ([facility]) Results ID Date Data Source [id number] 06/09/2020 12:00:00 AM EST [facility] Name Value Range Interpretation Code Description Data Brook rce(s) Supporting Document(s) SARS-CoV-2 (COVID-19) RNA [Presence] in Respiratory specimen by ELIZABETH with probe detection [facility] This lab was ordered by [facility] and reported by [employer]. ID Date Data Source GASTROINTESTINAL GI PANEL (GIPANEL) 10/23/2019 12:00:00 AM EDT eCW1 ([facility]) Name Value Range Interpretation Code Description Data Brook rce(s) Supporting Document(s) This Gastrointestinal PCR Panel detects the following bacteria, GASTROINTESTINAL (GI) PANEL eCW1 ([facility]) Procedure Vital Signs ID Date Data Source UNK Name Value Range Interpretation Code Description Data Source(s) Diastolic blood pressure 95 mm[Hg] 95 mm[Hg] eCW1 ([facility]) Systolic blood pressure 142 mm[Hg] 142 mm[Hg] e CW1 ([facility]) Body temperature 98.1 [degF] 98.1 [degF] eCW1 ( [facility]) Respiratory rate 16 /min 16 /min eCW1 ([facility]) Heart rate 74 /min 74 /min eCW1 (Counts include 234 beds at the [facility]) Body mass index (BMI) [Ratio] 30.08 kg/m2 30.08 kg/m2 eCW1 ([facility]) Body height 57 [in_us] 57 [in_us] eCW1 ([facility]) Body weight Measured 139 [lb_av] 139 [lb_av] eC W1 ([facility])
== END 2020-08-11 02:24 | disposition home or self-care (01) ==
LOC: M ED 00:05
DX: R22.0 Localized swelling, mass and lump, head (principal)

== ENCOUNTER → 2021-03-02 | Outpatient (REF) | payer OTHER | LOC: M SFHCLERA 19:28 | PROVIDERS: ATTEND Family Medicine | DX: N89.8 Other specified noninflammatory disorders of vagina (principal) ==

== ENCOUNTER → 2021-03-02 | Outpatient (REF) | payer OTHER | LOC: M SFHCLERA 19:30 | PROVIDERS: ATTEND Family Medicine | DX: Z76.89 Persons encountering health services in other specified circumstances (principal) ==

== ENCOUNTER → 2021-03-02 | Outpatient (REF) | payer OTHER | LOC: M SFHCLERA 19:14 | PROVIDERS: ATTEND Family Medicine | DX: Z01.419 Encounter for gynecological examination (general) (routine) without abnormal findings (principal); Z12.4 Encounter for screening for malignant neoplasm of cervix ==

== ENCOUNTER 2021-06-22 13:56 | Emergency (ER) | payer OTHER ==
[~2021-06-22] VITALS: Ht 144.8 cm; Wt 52.3 kg
[2021-06-22 13:57] VITALS: BP 133/68
== END 2021-06-22 14:13 | disposition left against medical advice (07) ==
LOC: M ED 13:56
DX: Z53.29 Procedure and treatment not carried out because of patient's decision for other reasons (principal)

== ENCOUNTER → 2021-12-13 | Outpatient (CLI) | payer OTHER | LOC: M RAD 11:13 | PROVIDERS: ATTEND Family Medicine | DX: M79.604 Pain in right leg (principal); M79.605 Pain in left leg ==

== ENCOUNTER → 2022-11-06 | Outpatient (REF) | payer OTHER ==
[2022-11-06 11:47] LABS: APPEARANCE, URINE HAZY (CLEAR); BACTERIA, URINE AUTO NEGATIVE (NEGATIVE); BILIRUBIN, URINE AUTO NEGATIVE (NEGATIVE); BLOOD, URINE BLOOD NEGATIVE (NEGATIVE); COLOR, URINE YELLOW (YELLOW); GLUCOSE, URINE (UA) AUTO NEGATIVE (NEGATIVE); KETONE, URINE AUTO NEGATIVE (NEGATIVE); LEUKOCYTE ESTERASE, URINE AUTO NEGATIVE (NEGATIVE); MUCUS, URINE SMALL (NEGATIVE); NITRITE, URINE AUTO NEGATIVE (NEGATIVE); PROTEIN, URINE AUTO NEGATIVE (NEGATIVE); RBC, URINE AUTO 2 /HPF (0-3); SPECIFIC GRAVITY URINE AUTO 1.023 (1.002-1.035); SQUAMOUS EPITHELIAL CELL UR AU 6 /HPF (0-6); UROBILINOGEN, URINE AUTO 0.2 mg/dL (0.0-2.0); WBC, URINE AUTO 1 /HPF (0-3)
== END ==
LOC: M SFHCLERA 11:01
PROVIDERS: ATTEND Family Medicine
DX: R35.0 Frequency of micturition (principal)

== ENCOUNTER → 2022-11-14 | Outpatient (REF) | payer OTHER | LOC: M SFHCLERA 13:19 | PROVIDERS: ATTEND Family Medicine | DX: Z12.4 Encounter for screening for malignant neoplasm of cervix (principal); N89.8 Other specified noninflammatory disorders of vagina ==

== ENCOUNTER → 2023-01-17 | Outpatient (REF) | payer OTHER | LOC: M SFHCWAGY 17:26 | PROVIDERS: ATTEND Specialist | DX: R87.612 Low grade squamous intraepithelial lesion on cytologic smear of cervix (LGSIL) (principal) ==

== ENCOUNTER → 2025-01-14 | Outpatient (CLI) | payer OTHER ==
[~2025-01-14] MED LIST changes: -CYCL5TAB PO; +CYCL5TAB4 PO; +ONDA-282 PO; -ONDA4TAB6 PO
[2025-01-14 15:41] LABS: PLATELET COUNT, AUTOMATED 288 10^3/uL (150-450)
[2025-01-14 16:22] LABS: Trichomonas vaginalis (AMP) NOT DETECTED (NEGATIVE)
[2025-01-14 16:43] LABS: HIV 1&2 SCREEN NEGATIVE (NEGATIVE)
[2025-01-14 16:45] LABS: GC DNA AMPLIFICATION NEGATIVE (NEGATIVE)
[2025-01-14 16:51] LABS: HEPATITIS C VIRUS ABY INDEX < 0.02 INDEX (<0.8)
== END ==
LOC: M PLALAB 13:44
PROVIDERS: ATTEND Obstetrics & Gynecology
DX: Z34.81 Encounter for supervision of other normal pregnancy, first trimester (principal); Z3A.00 Weeks of gestation of pregnancy not specified

== ENCOUNTER → 2025-03-06 | Outpatient (CLI) | payer OTHER | LOC: M RAD 10:41 | PROVIDERS: ATTEND Nurse Practitioner Family | DX: O28.3 Abnormal ultrasonic finding on antenatal screening of mother (principal); Z3A.22 22 weeks gestation of pregnancy; D25.9 Leiomyoma of uterus, unspecified; O34.12 Maternal care for benign tumor of corpus uteri, second trimester ==

== ENCOUNTER 2025-03-24 07:12 | Emergency (ER) | payer OTHER ==
[~2025-03-24] VITALS: Ht 162.6 cm; Wt 58.4 kg
[2025-03-24 09:18] VITALS: BP 124/80; TEMP 97.4; O2SAT 100
== END 2025-03-24 09:35 | disposition home or self-care (01) ==
LOC: M ED 07:12
DX: S00.83XA Contusion of other part of head, initial encounter (principal); Y92.410 Unspecified street and highway as the place of occurrence of the external cause; Y93.9 Activity, unspecified; Y99.9 Unspecified external cause status; W22.8XXA Striking against or struck by other objects, initial encounter

== ENCOUNTER → 2025-05-26 | Outpatient (CLI) | payer OTHER ==
[2025-05-26 14:56] LABS: PLATELET COUNT, AUTOMATED 301 10^3/uL (150-450)
[2025-05-26 15:16] LABS: GLUCOSE CHALLENGE TEST 1 HOUR 93 MG/DL (LESS THAN 140)
[2025-05-26 15:44] LABS: HIV 1&2 SCREEN NEGATIVE (NEGATIVE)
[2025-05-26 15:52] LABS: HEPATITIS C VIRUS ABY INDEX < 0.02 INDEX (<0.8)
[2025-05-26 16:16] LABS: Trichomonas vaginalis (AMP) NOT DETECTED (NEGATIVE)
[2025-05-26 16:40] LABS: GC DNA AMPLIFICATION NEGATIVE (NEGATIVE)
== END ==
LOC: M PLALAB 09:25
PROVIDERS: ATTEND Advanced Practice Midwife
DX: O34.211 Maternal care for low transverse scar from previous cesarean delivery (principal)

== ENCOUNTER → 2025-05-29 | Outpatient (CLI) | payer OTHER | LOC: M PLALAB 08:58 | PROVIDERS: ATTEND Advanced Practice Midwife | DX: Z84.81 Family history of carrier of genetic disease (principal) ==